=== PATIENT | female | born 1950 | race Caucasian/White ===

== ENCOUNTER → 2019-02-11 09:02 | Outpatient (CLI) | payer MEDICARE, SELFPAY ==
[2019-02-11 10:46] LABS: BUN Creatinine Ratio 18.9 (6-22); Blood Urea Nitrogen 17 mg/dL (7-17); Calcium 9.5 mg/dL (8.4-10.2); Carbon Dioxide 32 mmol/L (22-32); Chloride 99 mmol/L (98-107); Cholesterol 256 mg/dL (140-199); Estimated Glomerular Filt Rate > 60.0 mL/min (>60); Glucose 84 mg/dL (80-110); HDL Cholesterol 52 mg/dL (40-60); HEMOLYSIS < 15 (0-50); LDL Cholesterol Calculated 175 mg/dL (<100); Potassium 3.6 mmol/L (3.4-5.1); Sodium 138 mmol/L (137-145); Triglycerides 145 mg/dL (35-150)
== END ==
PROVIDERS: PCP Family Medicine; Visit Provider Hospitalist
DX: I10 Essential (primary) hypertension (principal)
CPT/HCPCS: 36415; 80048; 80061

== ENCOUNTER → 2019-02-14 10:00 | Outpatient (CLI) | payer MEDICARE, SELFPAY ==
--- NOTE | 2019-02-14 10:02 | DI.RAD.S_ITS ---
PROCEDURE: XR KNEE LT 3V INDICATIONS: Strain of L Knee TECHNIQUE: 3 views of the knee were acquired. COMPARISON: None. FINDINGS: Bones: No fractures or dislocations. No suspicious bony lesions. Mild narrowing of the medial femorotibial joint and tricompartmental periarticular osteophyte formation. Soft tissues: No joint effusion. No suspicious soft tissue calcifications. IMPRESSION: Mild knee joint degeneration, most notably involving the medial femorotibial joint. If pain persist with conservative management, consider advancing imaging such as MRI for further assessment. Dictated by: Doc ELLISON Interpreted: Queta Perera MD on 02/14/2019 at 10:23 Approved by: Queta Perera M.D. on 02/14/2019 at 16:51
== END ==
PROVIDERS: PCP Family Medicine; Visit Provider Family Medicine
DX: S86.912A Strain of unspecified muscle(s) and tendon(s) at lower leg level, left leg, initial encounter (principal); M17.12 Unilateral primary osteoarthritis, left knee; X58.XXXA Exposure to other specified factors, initial encounter
CPT/HCPCS: 73562

== ENCOUNTER 2019-05-28 09:00 | Outpatient (RCR) | payer MEDICARE, SELFPAY ==
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
--- NOTE | 2019-03-28 15:37 | PT-IP ANOTE ---
Pt leaves message for PT this morning and PT returns call approximately [phone]. She reports she was a little off this morning with left sided weakness in leg and wooziness. 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 She verbalizes good fluid intake and that perhaps she has not taken in enough sodium. She is going to try this and will make sure she follows up with her doctor if any other concerns.
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
--- NOTE | 2019-04-17 09:11 | PT.OPPOC ---
Physical, Occupational & Speech Therapy At [facility] Current Diagnoses Strain of unspecified muscle(s) and tendon(s) at lower leg level, left leg, initial encounter (04/17/19) Visit Care Team Role Provider Type Leslee Elizondo DO Attending Provider Physician Primary Care Provider Specialty: [facility] Address: [address] [place] [address], [address], [facility] Email: [email or web address] Plan Of Care PT-OP-T Assessment and Plan Start: 02/26/19 07:32 Freq: Status: Active Protocol: Document 04/17/19 08:14 MB (Rec: 04/17/19 09:09 MB [id number]) Physical Therapy Assessment Rehab Potential Rehabilitation Potential Good Goals 5 Cloth Shader Goal (LTG) Pt will perform B Tandem for at least 30 sec with socks on to improve balance and decrease fall risk by 2019. LTG Duration 8 weeks 4 Half-Way Goal (LTG) Pt will perform HEP with I including pelvic realignment, flexibility, strengthening and balance exercises to increase strength and decrease pain by 06/16/2019. 04/17/2019: Pt is performing progressive HEP LTG Duration 8 weeks 3 Cloth Shader Goal (LTG) Pt will present with improved left knee AROM flexion to at least 125 deg by 04/29/19. 04/17/2019: Goal met with flexion to 126 deg LTG Duration 8 weeks 2 Half-Way Goal (LTG) Pt will present with improved B hip abduction and extension strength to 5/5 by 06/16/2019. 04/17/2019: Right hip flexion and abduction are 5/5 and left hip flexion and abduction are both 4/5 LTG Duration 8 weeks 1 Half-Way Goal (LTG) Pt will present with an improved LE functional index scale score to reflect no more than 20% impairment to allow return to previous active lifestyle by 06/16/2019. 04/17/2019: LEF index score reflects improvement of 28.75% impairment LTG Duration 8 weeks Assessment Summary Assessment Pt has progress towards all PT goals since starting PT. These include decreased pain, strength, performance of HEP and LE functional index score. Pt will benefit from ongoing PT for strengthening, balance and Counterstrain including periosteal fascial treatment to allow pt to return to I active lifestyle. Added balance goal to plan today. Pt to change to Dr. Toledo as PCP 04/25/2019 and requests that PT sends this reassessment to him . Will con't PT 1-2x/wk as pt able to attend treatments d/t copay and needs. Will set plan to 2x/wk currently. Physical Therapy Plan Frequency and Duration Frequency of Treatment 2x/Week Duration of Treatment 8 weeks Plan of Care Start Date 04/17/19 Plan of Care End Date 06/16/19 Therapeutic Interventions Therapeutic Interventions Aquatic Therapy,Balance Training,Home Exercise Program ,Manual Therapy,Neuromuscular Re-education,Patient/Caregiver Education,Self-Care/Home Management,Soft Tissue Mobilization,Taping, Therapeutic Exercises Modalities Cold Pack/Ice Massage,Electric Stimulation,Hot Packs, Ultrasound Next Visit Focus/Plan Next Note Type Treatment Note Next Visit Plan Consider core progression. Progress side step and heel raises with multifidi progression, mini wall squat, Counterstrain as appropriate Plan of Care Dates Plan of Care Start Date 04/17/19 Plan of Care End Date 06/16/19 Electronically Signed by: Erika Wren, PT 04/17/19 0911 Please Sign and Return: I have reviewed this Plan of Care and certify that the skilled therapy services above are required to meet the patient?s needs. Physician Signature Date Printed Name and Credentials Clinical Instructor Signature Printed Name and Credentials
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
== END 2019-05-29 08:04 ==
LOC: PHYS 09:00
PROVIDERS: PCP Family Medicine; Visit Provider Family Medicine
DX: S86.912A Strain of unspecified muscle(s) and tendon(s) at lower leg level, left leg, initial encounter (principal)
CPT/HCPCS: 97110; 97140; 97161

== ENCOUNTER 2019-09-09 08:15 | Outpatient (RCR) | payer MEDICARE, SELFPAY ==
--- NOTE | 2019-06-02 18:12 | PT.OIE ---
Current Diagnoses Strain of muscle(s) and tendon(s) of the rotator cuff of right shoulder, initial encounter (06/02/19) Past Medical History (Last Updated 05/15/19 @ 10:08 by Juan Toledo DO) Allergies (Chronic) Biceps tendinitis of right shoulder (Acute) Cervical somatic dysfunction (Acute) Knee problem (Chronic) Screening for breast cancer (Acute) Stiff neck (Acute) Strain of tendon of right rotator cuff (Acute) Vision disorder (Chronic) Past Surgical History (Last Updated 02/10/19 @ 19:58 by Serenity Marrero) Anesthesia (Resolved) History of appendectomy (Resolved ~1968) History of eye surgery (Resolved ~2011) History of radial keratotomy (Resolved ~1986) History of tubal ligation (Resolved ~1974) Hx of LASIK (Resolved ~1989) Visit Care Team Role Provider Type Juan Toledo DO Attending Provider Physician Primary Care Provider Referring Provider [facility]ty: [facility] Address: [address] [place] [address] Email: Physical Therapy Initial Evaluation PT-OP-A Visit Information Start: 06/02/19 08:18 Freq: Status: Active Protocol: Document 06/02/19 16:02 MB (Rec: 06/02/19 16:50 MB [id number]) Out-Patient Physical Therapy Visit Information Visit Information Visit Type Initial Evaluation Visit Note [employer] Medicare Advantage Visit Start Time 16:02 Visit Stop Time 16:45 Total Visit Minutes 43 Visit Number 1 Evaluation Information Evaluation Date 06/02/19 PT-OP-B Current Condition Start: 06/02/19 08:18 Freq: Status: Active Protocol: Document 06/02/19 16:02 MB (Rec: 06/02/19 16:50 MB [id number]) Current Condition History of Current Condition Onset Date 10 months ago, after moving from [place] History of Current Condition Pt reports 2/10 right shoulder and lateral and posterior elbow that is worse with chopping tasks in the kitchen. She sleeps on her side with her left hand occ neutral and occ flexed. Pt has an old right shoulder injury with lifting heavy axe over right shoulder 5 years ago. She had PT for her shoulder. Prior Treatments and Tests Dry needling right shoulder and elbow Treatment Goals Patient/Caregiver Goals Pt's goal is to be able to cook without pain. PT-OP-C Subjective Start: 06/02/19 08:18 Freq: Status: Active Protocol: Document 06/02/19 16:02 MB (Rec: 06/02/19 16:50 MB [id number]) OP-PT Subjective Patient Comments Patient Comments See above PT-OP-K Range of Motion Start: 06/02/19 08:18 Freq: Status: Active Protocol: Document 06/02/19 16:02 MB (Rec: 06/02/19 18:12 MB [id number]) Cervical Spine Range of Motion Cervical Spine Active Testing Position Standing Flexion 40 Extension 34 Rotation Left 45 Rotation Right 55 Lateral Flexion Left 25 Lateral Flexion Right 16 Shoulder Goniometric Range of Motion Shoulder Left Shoulder ROM WFL Yes Internal Rotation Behind Back (text) Pt is hypermobile Right Shoulder ROM WFL Yes Internal Rotation Behind Back (text) Pt is hypermobile PT-OP-M Strength Start: 06/02/19 08:18 Freq: Status: Active Protocol: Document 06/02/19 16:02 MB (Rec: 06/02/19 18:12 MB [id number]) Shoulder Strength Shoulder Manual Muscle Testing Left Flexion 5 Normal Abduction (C5) 5 Normal External Rotation 5 Normal Internal Rotation 5 Normal Right Flexion 5 Normal Abduction (C5) 3 Fair External Rotation 3+ Fair+ Internal Rotation 4 Good Elbow/Forearm Strength Elbow and Forearm Manual Muscle Testing Left Flexion (C6) 5 Normal Extension (C7) 5 Normal Pronation 3+ Fair+ Supination 3+ Fair+ Right Flexion (C6) 5 Normal Extension (C7) 5 Normal Pronation 5 Normal Supination 5 Normal Wrist Strength Wrist Manual Muscle Testing Left Flexion (C7) 5 Normal Extension (C6) 5 Normal Right Flexion (C7) 5 Normal Extension (C6) 4 Good Hand Truck Rental Service Attendant/Pinch Strength Hand Strength Left Comments 43 lb, 36 lb, 42 lb Right Comments 55 lb, 65 lb, 55 lb PT-OP-Q Treatments Start: 06/02/19 08:18 Freq: Status: Active Protocol: Document 06/02/19 16:02 MB (Rec: 06/02/19 18:12 MB [id number]) Cardio Equipment Recumbent Elliptical (Biodex) Duration (Minutes) 2 Resistance 2 Bicycle (Upright) Duration (Minutes) 2 Resistance 9 Therapeutic Exercises Standing Exercises Racquet ball massage, MWM right infraspinatus Comments Ed pt how to perform this date PT-OP-T Assessment and Plan Start: 06/02/19 08:18 Freq: Status: Active Protocol: Document 06/02/19 16:02 MB (Rec: 06/02/19 18:12 MB [id number]) Physical Therapy Assessment Rehab Potential Rehabilitation Potential Excellent Evaluation Complexity Number of Personal Factors/Comorbidities 0 Number of Body Systems Impaired 1-2 Clinical Presentation at Evaluation Stable Impairments Impairments Pain,Strength Goals 5 Financial Planning Adviser Goal (LTG) Pt will be able to perform chopping in kitchen for 10 minutes with right hand with reports of 90% improvement in pain by 08/04/2019. LTG Duration 8 weeks 4 Impairment QuickDASH score reflects 13.63 % impairment Financial Planning Adviser Goal (LTG) Pt will present with QuickDASH score reflecting no more than 10% impairment to allow return to cooking tasks without pain by 08/04/2019. LTG Duration 8 weeks 3 Financial Planning Adviser Goal (LTG) Pt will present with improved B shoulder abduction, external rotation, internal rotation and wrist pronation and supination strength to 5/5 by 08/04/2019. LTG Duration 8 weeks 2 Assisted Goal (LTG) Pt will perform progressive HEP with I to improve strength by 08/04/2019. LTG Duration 8 weeks Assessment Summary Assessment Pt is a 69 y/o female presenting with reports of right shoulder and elbow pain with chopping in the kitchen. She presents with hypermobility in her joints and decreased shoulder and elbow strength. She presents with fascial changes in her shoulder musculature, triceps and wrist extensors. She will benefit from PT for strengthening, postural exercises and manual work. Physical Therapy Plan Frequency and Duration Frequency of Treatment 2x/Week Duration of Treatment 8 weeks Plan of Care Start Date 06/02/19 Plan of Care End Date 08/04/19 Therapeutic Interventions Therapeutic Interventions Balance Training,Canalithic Repositioning,Home Exercise Program,Joint Mobilizations, Manual Therapy,Neuromuscular Re-education,Patient/Caregiver Education,Self-Care/Home Management,Soft Tissue Mobilization,Taping, Therapeutic Activities, Therapeutic Exercises Modalities Cold Pack/Ice Massage,Electric Stimulation,Hot Packs, Ultrasound Other Therapeutic Interventions LTT Next Visit Focus/Plan Next Note Type Treatment Note Next Visit Plan Con't ther ex
--- NOTE | 2019-06-02 18:12 | PT.OPPOC ---
Physical, Occupational & Speech Therapy At [facility] Current Diagnoses Strain of muscle(s) and tendon(s) of the rotator cuff of right shoulder, initial encounter (06/02/19) Visit Care Team Role Provider Type Juan Toledo DO Attending Provider Physician Primary Care Provider Referring Provider Specialty: [facility] Address: [address] [place] [address], [facility] Email: Plan Of Care PT-OP-T Assessment and Plan Start: 06/02/19 08:18 Freq: Status: Active Protocol: Document 06/02/19 16:02 MB (Rec: 06/02/19 18:12 MB [id number]) Physical Therapy Assessment Rehab Potential Rehabilitation Potential Excellent Evaluation Complexity Number of Personal Factors/Comorbidities 0 Number of Body Systems Impaired 1-2 Clinical Presentation at Evaluation Stable Impairments Impairments Pain,Strength Goals 5 Director Sales Support Goal (LTG) Pt will be able to perform chopping in kitchen for 10 minutes with right hand with reports of 90% improvement in pain by 08/04/2019. LTG Duration 8 weeks 4 Impairment QuickDASH score reflects 13.63 % impairment Nursing Home Goal (LTG) Pt will present with QuickDASH score reflecting no more than 10% impairment to allow return to cooking tasks without pain by 08/04/2019. LTG Duration 8 weeks 3 Nursing Home Goal (LTG) Pt will present with improved B shoulder abduction, external rotation, internal rotation and wrist pronation and supination strength to 5/5 by 08/04/2019. LTG Duration 8 weeks 2 Nursing Home Goal (LTG) Pt will perform progressive HEP with I to improve strength by 08/04/2019. LTG Duration 8 weeks Assessment Summary Assessment Pt is a 69 y/o female presenting with reports of right shoulder and elbow pain with chopping in the kitchen. She presents with hypermobility in her joints and decreased shoulder and elbow strength. She presents with fascial changes in her shoulder musculature, triceps and wrist extensors. She will benefit from PT for strengthening, postural exercises and manual work. Physical Therapy Plan Frequency and Duration Frequency of Treatment 2x/Week Duration of Treatment 8 weeks Plan of Care Start Date 06/02/19 Plan of Care End Date 08/04/19 Therapeutic Interventions Therapeutic Interventions Balance Training,Canalithic Repositioning,Home Exercise Program,Joint Mobilizations, Manual Therapy,Neuromuscular Re-education,Patient/Caregiver Education,Self-Care/Home Management,Soft Tissue Mobilization,Taping, Therapeutic Activities, Therapeutic Exercises Modalities Cold Pack/Ice Massage,Electric Stimulation,Hot Packs, Ultrasound Other Therapeutic Interventions LTT Next Visit Focus/Plan Next Note Type Treatment Note Next Visit Plan Con't ther ex Plan of Care Dates Plan of Care Start Date 06/02/19 Plan of Care End Date 08/04/19 Electronically Signed by: Erika Wren, PT 06/02/19 4400 Please Sign and Return: I have reviewed this Plan of Care and certify that the skilled therapy services above are required to meet the patient?s needs. Physician Signature Date Printed Name and Credentials Clinical Instructor Signature Printed Name and Credentials
--- NOTE | 2019-06-05 16:10 | PT.OTN ---
Current Diagnoses Strain of muscle(s) and tendon(s) of the rotator cuff of right shoulder, initial encounter (06/05/19) Physical Therapy Treatment Note PT-OP-A Visit Information Start: 06/02/19 08:18 Freq: Status: Active Protocol: Document 06/05/19 15:17 MB (Rec: 06/05/19 16:10 MB [id number]) Out-Patient Physical Therapy Visit Information Visit Information Visit Type Treatment Note Visit Note [employer] Medicare Advantage Visit Start Time 15:17 Visit Stop Time 16:00 Total Visit Minutes 43 Visit Number 2 PT-OP-B Current Condition Start: 06/02/19 08:18 Freq: Status: Active Protocol: Document 06/02/19 16:02 MB (Rec: 06/02/19 16:50 MB [id number]) Current Condition History of Current Condition Onset Date 10 months ago, after moving from [place] History of Current Condition Pt reports 2/10 right shoulder and lateral and posterior elbow that is worse with chopping tasks in the kitchen. She sleeps on her side with her left hand occ neutral and occ flexed. Pt has an old right shoulder injury with lifting heavy axe over right shoulder 5 years ago. She had PT for her shoulder. Prior Treatments and Tests Dry needling right shoulder and elbow Treatment Goals Patient/Caregiver Goals Pt's goal is to be able to cook without pain. PT-OP-C Subjective Start: 06/02/19 08:18 Freq: Status: Active Protocol: Document 06/05/19 15:17 MB (Rec: 06/05/19 16:10 MB [id number]) OP-PT Subjective Patient Comments Patient Comments Pt states that her dry needling treatment on her right arm was intense. PT-OP-K Range of Motion Start: 06/02/19 08:18 Freq: Status: Active Protocol: Document 06/02/19 16:02 MB (Rec: 06/02/19 18:12 MB [id number]) Cervical Spine Range of Motion Cervical Spine Active Testing Position Standing Flexion 40 Extension 34 Rotation Left 45 Rotation Right 55 Lateral Flexion Left 25 Lateral Flexion Right 16 Shoulder Goniometric Range of Motion Shoulder Left Shoulder ROM WFL Yes Internal Rotation Behind Back (text) Pt is hypermobile Right Shoulder ROM WFL Yes Internal Rotation Behind Back (text) Pt is hypermobile PT-OP-M Strength Start: 06/02/19 08:18 Freq: Status: Active Protocol: Document 06/02/19 16:02 MB (Rec: 06/02/19 18:12 MB [id number]) Shoulder Strength Shoulder Manual Muscle Testing Left Flexion 5 Normal Abduction (C5) 5 Normal External Rotation 5 Normal Internal Rotation 5 Normal Right Flexion 5 Normal Abduction (C5) 3 Fair External Rotation 3+ Fair+ Internal Rotation 4 Good Elbow/Forearm Strength Elbow and Forearm Manual Muscle Testing Left Flexion (C6) 5 Normal Extension (C7) 5 Normal Pronation 3+ Fair+ Supination 3+ Fair+ Right Flexion (C6) 5 Normal Extension (C7) 5 Normal Pronation 5 Normal Supination 5 Normal Wrist Strength Wrist Manual Muscle Testing Left Flexion (C7) 5 Normal Extension (C6) 5 Normal Right Flexion (C7) 5 Normal Extension (C6) 4 Good Hand Satellite Tv Technician Installer/Pinch Strength Hand Strength Left Comments 43 lb, 36 lb, 42 lb Right Comments 55 lb, 65 lb, 55 lb PT-OP-Q Treatments Start: 06/02/19 08:18 Freq: Status: Active Protocol: Document 06/05/19 15:17 MB (Rec: 06/05/19 16:10 MB [id number]) Therapeutic Exercises Standing Exercises Scapular retraction, triceps work Comments Performed 5 reps slowly, added to HEP Scapular retraction and shoulder extension Comments Performed 5 reps slowly, added to HEP Shoulder ER with level 1 band Comments Performed B, 5 reps with slow form, added to HEP Other Exercises Downward dog Comments Focus on form, feet down, thoracic stretch with scap retraction Manual Therapy Treatment Other Other Manual Treatments Quick ice tissue mobilization right elbow over joint, anconeus, distal triceps and extensor tendons PT-OP-T Assessment and Plan Start: 06/02/19 08:18 Freq: Status: Active Protocol: Document 06/05/19 15:17 MB (Rec: 06/05/19 16:10 MB [id number]) Physical Therapy Assessment Rehab Potential Rehabilitation Potential Excellent Evaluation Complexity Number of Personal Factors/Comorbidities 0 Number of Body Systems Impaired 1-2 Clinical Presentation at Evaluation Stable Impairments Impairments Pain,Strength Goals 5 Seamstress Fitter Goal (LTG) Pt will be able to perform chopping in kitchen for 10 minutes with right hand with reports of 90% improvement in pain by 08/04/2019. LTG Duration 8 weeks 4 Impairment QuickDASH score reflects 13.63 % impairment Senior Care Goal (LTG) Pt will present with QuickDASH score reflecting no more than 10% impairment to allow return to cooking tasks without pain by 08/04/2019. LTG Duration 8 weeks 3 Seamstress Fitter Goal (LTG) Pt will present with improved B shoulder abduction, external rotation, internal rotation and wrist pronation and supination strength to 5/5 by 08/04/2019. LTG Duration 8 weeks 2 Senior Care Goal (LTG) Pt will perform progressive HEP with I to improve strength by 08/04/2019. LTG Duration 8 weeks Assessment Summary Assessment Initiated shoulder strengthening today, quick ice and downward dog focusing on thoracic mobility. Con't PT efforts. Pt to talk with about con't PT over the next two weeks vs holding. She will call in about appointments. She understands risks. Physical Therapy Plan Frequency and Duration Frequency of Treatment 2x/Week Duration of Treatment 8 weeks Plan of Care Start Date 06/02/19 Plan of Care End Date 08/04/19 Therapeutic Interventions Therapeutic Interventions Balance Training,Canalithic Repositioning,Home Exercise Program,Joint Mobilizations, Manual Therapy,Neuromuscular Re-education,Patient/Caregiver Education,Self-Care/Home Management,Soft Tissue Mobilization,Taping, Therapeutic Activities, Therapeutic Exercises Modalities Cold Pack/Ice Massage,Electric Stimulation,Hot Packs, Ultrasound Other Therapeutic Interventions LTT Next Visit Focus/Plan Next Note Type Treatment Note Next Visit Plan Con't ther ex
--- NOTE | 2019-06-28 12:23 | PT-OP ANOTE ---
PT calls pt and she is doing good. She is seeing Dr. Toledo for her shoulder. She will set up appointments in July when she is called by front office.
--- NOTE | 2019-07-12 15:19 | PT-OP ANOTE ---
PT calls pt. Pt states that Dr. Toledo gave her some visualization exercises for her feet and arms. PT communicates that we do not know yet when clinic will reopen, that clinic hours will be limited to begin with, that therapists and patients will wear masks and that the gym situation will allow for 6 feet between patients. PT does communicate that PT has been providing manual care to patient and so pt and PT will be in nearer proximity. Pt communicates that she would like to con't with PT and Counterstrain as we had not yet started to work on her arm, which was her new order prior to the clinic closing. She states that she has con't with Dr. Toledo over the month and feels fine con't with PT.
--- NOTE | 2019-07-31 13:44 | PT.OTN ---
Current Diagnoses Strain of muscle(s) and tendon(s) of the rotator cuff of right shoulder, initial encounter (07/31/19) Physical Therapy Treatment Note PT-OP-A Visit Information Start: 06/02/19 08:18 Freq: Status: Active Protocol: Document 07/31/19 12:59 MB (Rec: 07/31/19 13:42 MB [id number]) Out-Patient Physical Therapy Visit Information Visit Information Visit Type Treatment Note Visit Note [facility] Medicare Advantage Visit Start Time 12:59 Visit Stop Time 13:37 Total Visit Minutes 38 Visit Number 3 PT-OP-B Current Condition Start: 06/02/19 08:18 Freq: Status: Active Protocol: Document 06/02/19 16:02 MB (Rec: 06/02/19 16:50 MB [id number]) Current Condition History of Current Condition Onset Date 10 months ago, after moving from [place] History of Current Condition Pt reports 2/10 right shoulder and lateral and posterior elbow that is worse with chopping tasks in the kitchen. She sleeps on her side with her left hand occ neutral and occ flexed. Pt has an old right shoulder injury with lifting heavy axe over right shoulder 5 years ago. She had PT for her shoulder. Prior Treatments and Tests Dry needling right shoulder and elbow Treatment Goals Patient/Caregiver Goals Pt's goal is to be able to cook without pain. 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 She wonders about wearing aura wraps. She feels she is still challenging herself with those exercises. Update on right arm: pt got a pool noodle. Pt con't with ongoing right anterior shoulder pain near biceps tendon. She also points to lateral proximal arm around elbow. Chopping, house work and brushing teeth can bother her. Pain gets up to 6/10 at times. She is doing band exercises. Dr. Toledo told her to stop doing infraspinatus STM with racquet ball. It was too much. PT-OP-K Range of Motion Start: 06/02/19 08:18 Freq: Status: Active Protocol: Document 06/02/19 16:02 MB (Rec: 06/02/19 18:12 MB [id number]) Cervical Spine Range of Motion Cervical Spine Active Testing Position Standing Flexion 40 Extension 34 Rotation Left 45 Rotation Right 55 Lateral Flexion Left 25 Lateral Flexion Right 16 Shoulder Goniometric Range of Motion Shoulder Left Shoulder ROM WFL Yes Internal Rotation Behind Back (text) Pt is hypermobile Right Shoulder ROM WFL Yes Internal Rotation Behind Back (text) Pt is hypermobile PT-OP-M Strength Start: 06/02/19 08:18 Freq: Status: Active Protocol: Document 06/02/19 16:02 MB (Rec: 06/02/19 18:12 MB [id number]) Shoulder Strength Shoulder Manual Muscle Testing Left Flexion 5 Normal Abduction (C5) 5 Normal External Rotation 5 Normal Internal Rotation 5 Normal Right Flexion 5 Normal Abduction (C5) 3 Fair External Rotation 3+ Fair+ Internal Rotation 4 Good Elbow/Forearm Strength Elbow and Forearm Manual Muscle Testing Left Flexion (C6) 5 Normal Extension (C7) 5 Normal Pronation 3+ Fair+ Supination 3+ Fair+ Right Flexion (C6) 5 Normal Extension (C7) 5 Normal Pronation 5 Normal Supination 5 Normal Wrist Strength Wrist Manual Muscle Testing Left Flexion (C7) 5 Normal Extension (C6) 5 Normal Right Flexion (C7) 5 Normal Extension (C6) 4 Good Hand Asic Verification Engineer/Pinch Strength Hand Strength Left Comments 43 lb, 36 lb, 42 lb Right Comments 55 lb, 65 lb, 55 lb PT-OP-Q Treatments Start: 06/02/19 08:18 Freq: Status: Active Protocol: Document 07/31/19 12:59 MB (Rec: 07/31/19 13:42 MB [id number]) Therapeutic Exercises Standing Exercises Scapular retraction, triceps work Comments Performed 5 reps slowly level 2 band Scapular retraction and shoulder extension Comments Performed 5 reps slowly, level 2 band Shoulder ER with level 1 band Comments Performed B, 5 reps with slow form, level 2 band Other Exercises Pt has no HEP questions, reviewed as needed verbally Comments This performed today, reviewed core exercises, postural exercises, STM PT-OP-T Assessment and Plan Start: 06/02/19 08:18 Freq: Status: Active Protocol: Document 07/31/19 12:59 MB (Rec: 07/31/19 13:42 MB [id number]) Physical Therapy Assessment Rehab Potential Rehabilitation Potential Excellent Evaluation Complexity Number of Personal Factors/Comorbidities 0 Number of Body Systems Impaired 1-2 Clinical Presentation at Evaluation Stable Impairments Impairments Pain,Strength Goals 5 Correction Goal (LTG) Pt will be able to perform chopping in kitchen for 10 minutes with right hand with reports of 90% improvement in pain by 09/30/2019. 07/31/2019: Arm pain in kitchen is similar. LTG Duration 8 weeks 4 Impairment QuickDASH score reflects 13.63 % impairment Inside Sales Account Representative Goal (LTG) Pt will present with QuickDASH score reflecting no more than 10% impairment to allow return to cooking tasks without pain by 09/30/2019. 07/31/2019: QuickDASH score reflects 61.36% impairment. LTG Duration 8 weeks 3 Inside Sales Account Representative Goal (LTG) Pt will present with improved B shoulder abduction, external rotation, internal rotation and wrist pronation and supination strength to 5/5 by 09/30/2019. 07/31/2019: MMT today: shoulder abduction right 4/5 and pain 5/10, left 5/5; ER right 3+/5 and pain 2/10, left 4/5; B IR 5/5; B elbow flexion and extension, wrist extension, flexion, pronation and supination 5/5. LTG Duration 8 weeks 2 Correction Goal (LTG) Pt will perform progressive HEP with I to improve strength by 09/30/2019. 07/31/2019: Pt is performing progressive HEP. Reviewed all exercises today. LTG Duration 8 weeks Assessment Summary Assessment Progress note after COVID closure. Pt would like to con' t PT and understands risks. She con't with right shoulder pain. Her wrist strength and shoulder IR strength has improved. She is performing initial exercises and cannot yet do downward dog. She will benefit from ongoing PT for strengthening, thoracic mobility, manual PT. Physical Therapy Plan Frequency and Duration Frequency of Treatment 2x/Week Duration of Treatment 8 weeks Plan of Care Start Date 07/31/19 Plan of Care End Date 09/30/19 Therapeutic Interventions Therapeutic Interventions Balance Training,Canalithic Repositioning,Home Exercise Program,Joint Mobilizations, Manual Therapy,Neuromuscular Re-education,Patient/Caregiver Education,Self-Care/Home Management,Soft Tissue Mobilization,Taping, Therapeutic Activities, Therapeutic Exercises Modalities Cold Pack/Ice Massage,Electric Stimulation,Hot Packs, Ultrasound Other Therapeutic Interventions LTT Next Visit Focus/Plan Next Note Type Treatment Note Next Visit Plan Con't ther ex, assess first rib, initiate Counterstrain, thoracic mobility, pool noodle exercises.
--- NOTE | 2019-07-31 13:45 | PT.OPPOC ---
Physical, Occupational & Speech Therapy At [facility] Current Diagnoses Strain of muscle(s) and tendon(s) of the rotator cuff of right shoulder, initial encounter (07/31/19) Visit Care Team Role Provider Type Juan Toledo DO Attending Provider Physician Primary Care Provider Referring Provider Specialty: [facility] Address: [address] [place] [address], [facility] Email: Plan Of Care PT-OP-T Assessment and Plan Start: 06/02/19 08:18 Freq: Status: Active Protocol: Document 07/31/19 12:59 MB (Rec: 07/31/19 13:42 MB [id number]) Physical Therapy Assessment Rehab Potential Rehabilitation Potential Excellent Evaluation Complexity Number of Personal Factors/Comorbidities 0 Number of Body Systems Impaired 1-2 Clinical Presentation at Evaluation Stable Impairments Impairments Pain,Strength Goals 5 Fci Goal (LTG) Pt will be able to perform chopping in kitchen for 10 minutes with right hand with reports of 90% improvement in pain by 09/30/2019. 07/31/2019: Arm pain in kitchen is similar. LTG Duration 8 weeks 4 Impairment QuickDASH score reflects 13.63 % impairment Hub Cutter Apprentice Goal (LTG) Pt will present with QuickDASH score reflecting no more than 10% impairment to allow return to cooking tasks without pain by 09/30/2019. 07/31/2019: QuickDASH score reflects 61.36% impairment. LTG Duration 8 weeks 3 [facility]ci Goal (LTG) Pt will present with improved B shoulder abduction, external rotation, internal rotation and wrist pronation and supination strength to 5/5 by 09/30/2019. 07/31/2019: MMT today: shoulder abduction right 4/5 and pain 5/10, left 5/5; ER right 3+/5 and pain 2/10, left 4/5; B IR 5/5; B elbow flexion and extension, wrist extension, flexion, pronation and supination 5/5. LTG Duration 8 weeks 2 [facility]ci Goal (LTG) Pt will perform progressive HEP with I to improve strength by 09/30/2019. 07/31/2019: Pt is performing progressive HEP. Reviewed all exercises today. LTG Duration 8 weeks Assessment Summary Assessment Progress note after COVID closure. Pt would like to con' t PT and understands risks. She con't with right shoulder pain. Her wrist strength and shoulder IR strength has improved. She is performing initial exercises and cannot yet do downward dog. She will benefit from ongoing PT for strengthening, thoracic mobility, manual PT. Physical Therapy Plan Frequency and Duration Frequency of Treatment 2x/Week Duration of Treatment 8 weeks Plan of Care Start Date 07/31/19 Plan of Care End Date 09/30/19 Therapeutic Interventions Therapeutic Interventions Balance Training,Canalithic Repositioning,Home Exercise Program,Joint Mobilizations, Manual Therapy,Neuromuscular Re-education,Patient/Caregiver Education,Self-Care/Home Management,Soft Tissue Mobilization,Taping, Therapeutic Activities, Therapeutic Exercises Modalities Cold Pack/Ice Massage,Electric Stimulation,Hot Packs, Ultrasound Other Therapeutic Interventions LTT Next Visit Focus/Plan Next Note Type Treatment Note Next Visit Plan Con't ther ex, assess first rib, initiate Counterstrain, thoracic mobility, pool noodle exercises. Plan of Care Dates Plan of Care Start Date 07/31/19 Plan of Care End Date 09/30/19 Electronically Signed by: Erika Wren, PT 07/31/19 [id number] Please Sign and Return: I have reviewed this Plan of Care and certify that the skilled therapy services above are required to meet the patient?s needs. Physician Signature Date Printed Name and Credentials Clinical Instructor Signature Printed Name and Credentials
--- NOTE | 2019-07-31 17:54 | PT.OPPN ---
Current Diagnoses Strain of muscle(s) and tendon(s) of the rotator cuff of right shoulder, initial encounter (07/31/19) Physical Therapy Progress Note PT-OP-A Visit Information Start: 06/02/19 08:18 Freq: Status: Active Protocol: Document 07/31/19 12:59 MB (Rec: 07/31/19 13:42 MB [id number]) Out-Patient Physical Therapy Visit Information Visit Information Visit Type Treatment Note [facility] Start Time 12:59 Visit Stop Time 13:37 Total Visit Minutes 38 Visit Number 3 PT-OP-B Current Condition Start: 06/02/19 08:18 Freq: Status: Active Protocol: Document 06/02/19 16:02 MB (Rec: 06/02/19 16:50 MB [id number]) Current Condition History of Current Condition Onset Date 10 months ago, after moving from [place] History of Current Condition Pt reports 2/10 right shoulder and lateral and posterior elbow that is worse with chopping tasks in the kitchen. She sleeps on her side with her left hand occ neutral and occ flexed. Pt has an old right shoulder injury with lifting heavy axe over right shoulder 5 years ago. She had PT for her shoulder. Prior Treatments and Tests Dry needling right shoulder and elbow Treatment Goals Patient/Caregiver Goals Pt's goal is to be able to cook without pain. PT-OP-C Subjective Start: 06/02/19 08:18 Freq: Status: Active Protocol: Document 07/31/19 12:59 MB (Rec: 07/31/19 13:42 MB [id number]) OP-PT Subjective Patient Comments Patient Comments Pt states that she has some arthritic pain in her knees, greater on the right. She wonders about wearing aura wraps. She feels she is still challenging herself with those exercises. Update on right arm: pt got a pool noodle. Pt con't with ongoing right anterior shoulder pain near biceps tendon. She also points to lateral proximal arm around elbow. Chopping, house work and brushing teeth can bother her. Pain gets up to 6/10 at times. She is doing band exercises. Dr. Toledo told her to stop doing infraspinatus STM with racquet ball. It was too much. PT-OP-K Range of Motion Start: 06/02/19 08:18 Freq: Status: Active Protocol: Document 06/02/19 16:02 MB (Rec: 06/02/19 18:12 MB [id number]) Cervical Spine Range of Motion Cervical Spine Active Testing Position Standing Flexion 40 Extension 34 Rotation Left 45 Rotation Right 55 Lateral Flexion Left 25 Lateral Flexion Right 16 Shoulder Goniometric Range of Motion Shoulder Measured in Degrees Left Shoulder ROM WFL Yes Internal Rotation Behind Back (text) Pt is hypermobile Right Shoulder ROM WFL Yes Internal Rotation Behind Back (text) Pt is hypermobile PT-OP-M Strength Start: 06/02/19 08:18 Freq: Status: Active Protocol: Document 06/02/19 16:02 MB (Rec: 06/02/19 18:12 MB [id number]) Shoulder Strength Shoulder Manual Muscle Testing Left Flexion 5 Normal Abduction (C5) 5 Normal External Rotation 5 Normal Internal Rotation 5 Normal Right Flexion 5 Normal Abduction (C5) 3 Fair External Rotation 3+ Fair+ Internal Rotation 4 Good Elbow/Forearm Strength Elbow and Forearm Manual Muscle Testing Left Flexion (C6) 5 Normal Extension (C7) 5 Normal Pronation 3+ Fair+ Supination 3+ Fair+ Right Flexion (C6) 5 Normal Extension (C7) 5 Normal Pronation 5 Normal Supination 5 Normal Wrist Strength Wrist Manual Muscle Testing Left Flexion (C7) 5 Normal Extension (C6) 5 Normal Right Flexion (C7) 5 Normal Extension (C6) 4 Good Hand Astrochemist/Pinch Strength Hand Strength Left Comments 43 lb, 36 lb, 42 lb Right Comments 55 lb, 65 lb, 55 lb PT-OP-T Assessment and Plan Start: 06/02/19 08:18 Freq: Status: Active Protocol: Document 07/31/19 12:59 MB (Rec: 07/31/19 13:42 MB [id number]) Physical Therapy Assessment Rehab Potential Rehabilitation Potential Excellent Evaluation Complexity Number of Personal Factors/Comorbidities 0 Number of Body Systems Impaired 1-2 Clinical Presentation at Evaluation Stable Impairments Impairments Pain,Strength Goals 5 Bench Shear Operator Goal (LTG) Pt will be able to perform chopping in kitchen for 10 minutes with right hand with reports of 90% improvement in pain by 09/30/2019. 07/31/2019: Arm pain in kitchen is similar. LTG Duration 8 weeks 4 Impairment QuickDASH score reflects 13.63 % impairment Bench Shear Operator Goal (LTG) Pt will present with QuickDASH score reflecting no more than 10% impairment to allow return to cooking tasks without pain by 09/30/2019. 07/31/2019: QuickDASH score reflects 61.36% impairment. LTG Duration 8 weeks 3 Bench Shear Operator Goal (LTG) Pt will present with improved B shoulder abduction, external rotation, internal rotation and wrist pronation and supination strength to 5/5 by 09/30/2019. 07/31/2019: MMT today: shoulder abduction right 4/5 and pain 5/10, left 5/5; ER right 3+/5 and pain 2/10, left 4/5; B IR 5/5; B elbow flexion and extension, wrist extension, flexion, pronation and supination 5/5. LTG Duration 8 weeks 2 Bench Shear Operator Goal (LTG) Pt will perform progressive HEP with I to improve strength by 09/30/2019. 07/31/2019: Pt is performing progressive HEP. Reviewed all exercises today. LTG Duration 8 weeks Assessment Summary Assessment Progress note after COVID closure. Pt would like to con' t PT and understands risks. She con't with right shoulder pain. Her wrist strength and shoulder IR strength has improved. She is performing initial exercises and cannot yet do downward dog. She will benefit from ongoing PT for strengthening, thoracic mobility, manual PT. Physical Therapy Plan Frequency and Duration Frequency of Treatment 2x/Week Duration of Treatment 8 weeks Plan of Care Start Date 07/31/19 Plan of Care End Date 09/30/19 Therapeutic Interventions Therapeutic Interventions Balance Training,Canalithic Repositioning,Home Exercise Program,Joint Mobilizations, Manual Therapy,Neuromuscular Re-education,Patient/Caregiver Education,Self-Care/Home Management,Soft Tissue Mobilization,Taping, Therapeutic Activities, Therapeutic Exercises Modalities Cold Pack/Ice Massage,Electric Stimulation,Hot Packs, Ultrasound Other Therapeutic Interventions LTT Next Visit Focus/Plan Next Note Type Treatment Note Next Visit Plan Con't ther ex, assess first rib, initiate Counterstrain, thoracic mobility, pool noodle exercises.
--- NOTE | 2019-08-05 08:16 | PT.OTN ---
Current Diagnoses Strain of muscle(s) and tendon(s) of the rotator cuff of right shoulder, initial encounter (08/05/19) Physical Therapy Treatment Note PT-OP-A Visit Information Start: 06/02/19 08:18 Freq: Status: Active Protocol: Document 08/05/19 07:34 MB (Rec: 08/05/19 08:15 MB [id number]) Out-Patient Physical Therapy Visit Information Visit Information Visit Type Treatment Note [facility] Start Time 07:34 Visit Stop Time 08:15 Total Visit Minutes 41 Visit Number 2 PT-OP-B Current Condition Start: 06/02/19 08:18 Freq: Status: Active Protocol: Document 06/02/19 16:02 MB (Rec: 06/02/19 16:50 MB [id number]) Current Condition History of Current Condition Onset Date 10 months ago, after moving from [place] History of Current Condition Pt reports 2/10 right shoulder and lateral and posterior elbow that is worse with chopping tasks in the kitchen. She sleeps on her side with her left hand occ neutral and occ flexed. Pt has an old right shoulder injury with lifting heavy axe over right shoulder 5 years ago. She had PT for her shoulder. Prior Treatments and Tests Dry needling right shoulder and elbow Treatment Goals Patient/Caregiver Goals Pt's goal is to be able to cook without pain. PT-OP-C Subjective Start: 06/02/19 08:18 Freq: Status: Active Protocol: Document 08/05/19 07:34 MB (Rec: 08/05/19 08:15 MB [id number]) OP-PT Subjective Patient Comments Patient Comments Pt states that she had a good day yesterday driving to [place] and walking to [place] . PT-OP-K Range of Motion Start: 06/02/19 08:18 Freq: Status: Active Protocol: Document 06/02/19 16:02 MB (Rec: 06/02/19 18:12 MB [id number]) Cervical Spine Range of Motion Cervical Spine Active Testing Position Standing Flexion 40 Extension 34 Rotation Left 45 Rotation Right 55 Lateral Flexion Left 25 Lateral Flexion Right 16 Shoulder Goniometric Range of Motion Shoulder Left Shoulder ROM WFL Yes Internal Rotation Behind Back (text) Pt is hypermobile Right Shoulder ROM WFL Yes Internal Rotation Behind Back (text) Pt is hypermobile PT-OP-M Strength Start: 06/02/19 08:18 Freq: Status: Active Protocol: Document 06/02/19 16:02 MB (Rec: 06/02/19 18:12 MB [id number]) Shoulder Strength Shoulder Manual Muscle Testing Left Flexion 5 Normal Abduction (C5) 5 Normal External Rotation 5 Normal Internal Rotation 5 Normal Right Flexion 5 Normal Abduction (C5) 3 Fair External Rotation 3+ Fair+ Internal Rotation 4 Good Elbow/Forearm Strength Elbow and Forearm Manual Muscle Testing Left Flexion (C6) 5 Normal Extension (C7) 5 Normal Pronation 3+ Fair+ Supination 3+ Fair+ Right Flexion (C6) 5 Normal Extension (C7) 5 Normal Pronation 5 Normal Supination 5 Normal Wrist Strength Wrist Manual Muscle Testing Left Flexion (C7) 5 Normal Extension (C6) 5 Normal Right Flexion (C7) 5 Normal Extension (C6) 4 Good Hand Inventory Control Coordinator/Pinch Strength Hand Strength Left Comments 43 lb, 36 lb, 42 lb Right Comments 55 lb, 65 lb, 55 lb PT-OP-Q Treatments Start: 06/02/19 08:18 Freq: Status: Active Protocol: Document 08/05/19 07:34 MB (Rec: 08/05/19 08:15 MB [id number]) Manual Therapy Treatment Other Other Manual Treatments Counterstrain to improve fascial mobility. Pt agrees to treatment. PT assesses and treats: B ALL, standard lymphatic row B thoracic, periosteal ribs PT-OP-T Assessment and Plan Start: 06/02/19 08:18 Freq: Status: Active Protocol: Document 08/05/19 07:34 MB (Rec: 08/05/19 08:15 MB [id number]) Physical Therapy Assessment Rehab Potential Rehabilitation Potential Excellent Evaluation Complexity Number of Personal Factors/Comorbidities 0 Number of Body Systems Impaired 1-2 Clinical Presentation at Evaluation Stable Impairments Impairments Pain,Strength Goals 5 Embroiderer Hand Goal (LTG) Pt will be able to perform chopping in kitchen for 10 minutes with right hand with reports of 90% improvement in pain by 09/30/2019. 07/31/2019: Arm pain in kitchen is similar. LTG Duration 8 weeks 4 Impairment QuickDASH score reflects 13.63 % impairment Senior Care Goal (LTG) Pt will present with QuickDASH score reflecting no more than 10% impairment to allow return to cooking tasks without pain by 09/30/2019. 07/31/2019: QuickDASH score reflects 61.36% impairment. LTG Duration 8 weeks 3 Embroiderer Hand Goal (LTG) Pt will present with improved B shoulder abduction, external rotation, internal rotation and wrist pronation and supination strength to 5/5 by 09/30/2019. 07/31/2019: MMT today: shoulder abduction right 4/5 and pain 5/10, left 5/5; ER right 3+/5 and pain 2/10, left 4/5; B IR 5/5; B elbow flexion and extension, wrist extension, flexion, pronation and supination 5/5. LTG Duration 8 weeks 2 Senior Care Goal (LTG) Pt will perform progressive HEP with I to improve strength by 09/30/2019. 07/31/2019: Pt is performing progressive HEP. Reviewed all exercises today. LTG Duration 8 weeks Assessment Summary Assessment Initiated Counterstrain this date. She presents with increased tension in her thoracic spine and ribs and this likely contributes to elbow symptoms. She will benefit from ongoing PT for strengthening, thoracic mobility, manual PT. Physical Therapy Plan Frequency and Duration Frequency of Treatment 2x/Week Duration of Treatment 8 weeks Plan of Care Start Date 07/31/19 Plan of Care End Date 09/30/19 Therapeutic Interventions Therapeutic Interventions Balance Training,Canalithic Repositioning,Home Exercise Program,Joint Mobilizations, Manual Therapy,Neuromuscular Re-education,Patient/Caregiver Education,Self-Care/Home Management,Soft Tissue Mobilization,Taping, Therapeutic Activities, Therapeutic Exercises Modalities Cold Pack/Ice Massage,Electric Stimulation,Hot Packs, Ultrasound Other Therapeutic Interventions LTT Next Visit Focus/Plan Next Note Type Treatment Note Next Visit Plan Con't ther ex, assess first rib, initiate Counterstrain, thoracic mobility, pool noodle exercises.
--- NOTE | 2019-08-07 13:46 | PT.OTN ---
Current Diagnoses Strain of muscle(s) and tendon(s) of the rotator cuff of right shoulder, initial encounter (08/07/19) Physical Therapy Treatment Note PT-OP-A Visit Information Start: 06/02/19 08:18 Freq: Status: Active Protocol: Document 08/07/19 12:59 MB (Rec: 08/07/19 13:46 MB [id number]) Out-Patient Physical Therapy Visit Information Visit Information Visit Type Treatment Note [facility] Start Time 12:59 Visit Stop Time 13:44 Total Visit Minutes 45 Visit Number 3 PT-OP-B Current Condition Start: 06/02/19 08:18 Freq: Status: Active Protocol: Document 06/02/19 16:02 MB (Rec: 06/02/19 16:50 MB [id number]) Current Condition History of Current Condition Onset Date 10 months ago, after moving from [place] History of Current Condition Pt reports 2/10 right shoulder and lateral and posterior elbow that is worse with chopping tasks in the kitchen. She sleeps on her side with her left hand occ neutral and occ flexed. Pt has an old right shoulder injury with lifting heavy axe over right shoulder 5 years ago. She had PT for her shoulder. Prior Treatments and Tests Dry needling right shoulder and elbow Treatment Goals Patient/Caregiver Goals Pt's goal is to be able to cook without pain. PT-OP-C Subjective Start: 06/02/19 08:18 Freq: Status: Active Protocol: Document 08/07/19 12:59 MB (Rec: 08/07/19 13:46 MB [id number]) OP-PT Subjective Patient Comments Patient Comments Pt states that she needs more manual work. It took her body two days to assimilate. She is doing balance exercises and pelvic and back pain stretches . PT-OP-K Range of Motion Start: 06/02/19 08:18 Freq: Status: Active Protocol: Document 06/02/19 16:02 MB (Rec: 06/02/19 18:12 MB [id number]) Cervical Spine Range of Motion Cervical Spine Active Testing Position Standing Flexion 40 Extension 34 Rotation Left 45 Rotation Right 55 Lateral Flexion Left 25 Lateral Flexion Right 16 Shoulder Goniometric Range of Motion Shoulder Left Shoulder ROM WFL Yes Internal Rotation Behind Back (text) Pt is hypermobile Right Shoulder ROM WFL Yes Internal Rotation Behind Back (text) Pt is hypermobile PT-OP-M Strength Start: 06/02/19 08:18 Freq: Status: Active Protocol: Document 06/02/19 16:02 MB (Rec: 06/02/19 18:12 MB [id number]) Shoulder Strength Shoulder Manual Muscle Testing Left Flexion 5 Normal Abduction (C5) 5 Normal External Rotation 5 Normal Internal Rotation 5 Normal Right Flexion 5 Normal Abduction (C5) 3 Fair External Rotation 3+ Fair+ Internal Rotation 4 Good Elbow/Forearm Strength Elbow and Forearm Manual Muscle Testing Left Flexion (C6) 5 Normal Extension (C7) 5 Normal Pronation 3+ Fair+ Supination 3+ Fair+ Right Flexion (C6) 5 Normal Extension (C7) 5 Normal Pronation 5 Normal Supination 5 Normal Wrist Strength Wrist Manual Muscle Testing Left Flexion (C7) 5 Normal Extension (C6) 5 Normal Right Flexion (C7) 5 Normal Extension (C6) 4 Good Hand Purification Operator Helper/Pinch Strength Hand Strength Left Comments 43 lb, 36 lb, 42 lb Right Comments 55 lb, 65 lb, 55 lb PT-OP-Q Treatments Start: 06/02/19 08:18 Freq: Status: Active Protocol: Document 08/07/19 12:59 MB (Rec: 08/07/19 13:46 MB [id number]) Manual Therapy Treatment Other Other Manual Treatments Counterstrain to improve fascial mobility. Pt agrees to treatment. PT assesses and treats: B trigeminal nerve fascia, cervical sinu- vertebral nerves, left CDT, standard lymphatic row, iliac veins, left standard lymphatic row scapulohumeral PT-OP-T Assessment and Plan Start: 06/02/19 08:18 Freq: Status: Active Protocol: Document 08/07/19 12:59 MB (Rec: 08/07/19 13:46 MB [id number]) Physical Therapy Assessment Rehab Potential Rehabilitation Potential Excellent Evaluation Complexity Number of Personal Factors/Comorbidities 0 Number of Body Systems Impaired 1-2 Clinical Presentation at Evaluation Stable Impairments Impairments Pain,Strength Goals 5 Fdc Goal (LTG) Pt will be able to perform chopping in kitchen for 10 minutes with right hand with reports of 90% improvement in pain by 09/30/2019. 07/31/2019: Arm pain in kitchen is similar. LTG Duration 8 weeks 4 Impairment QuickDASH score reflects 13.63 % impairment Bumboater Goal (LTG) Pt will present with QuickDASH score reflecting no more than 10% impairment to allow return to cooking tasks without pain by 09/30/2019. 07/31/2019: QuickDASH score reflects 61.36% impairment. LTG Duration 8 weeks 3 Fdc Goal (LTG) Pt will present with improved B shoulder abduction, external rotation, internal rotation and wrist pronation and supination strength to 5/5 by 09/30/2019. 07/31/2019: MMT today: shoulder abduction right 4/5 and pain 5/10, left 5/5; ER right 3+/5 and pain 2/10, left 4/5; B IR 5/5; B elbow flexion and extension, wrist extension, flexion, pronation and supination 5/5. LTG Duration 8 weeks 2 [place] Goal (LTG) Pt will perform progressive HEP with I to improve strength by 09/30/2019. 07/31/2019: Pt is performing progressive HEP. Reviewed all exercises today. LTG Duration 8 weeks Assessment Summary Assessment Pt presents with increased fascial tension neural fascial system today. Con't to address. Initiate thoracic mobility and functional strengthening with PNF and/or body blade in future treatments. Physical Therapy Plan Frequency and Duration Frequency of Treatment 2x/Week Duration of Treatment 8 weeks Plan of Care Start Date 07/31/19 Plan of Care End Date 09/30/19 Therapeutic Interventions Therapeutic Interventions Balance Training,Canalithic Repositioning,Home Exercise Program,Joint Mobilizations, Manual Therapy,Neuromuscular Re-education,Patient/Caregiver Education,Self-Care/Home Management,Soft Tissue Mobilization,Taping, Therapeutic Activities, Therapeutic Exercises Modalities Cold Pack/Ice Massage,Electric Stimulation,Hot Packs, Ultrasound Other Therapeutic Interventions LTT Next Visit Focus/Plan Next Note Type Treatment Note Next Visit Plan Con't ther ex, assess first rib, initiate Counterstrain, thoracic mobility, pool noodle exercises.
--- NOTE | 2019-08-12 11:17 | PT.OTN ---
Current Diagnoses Strain of muscle(s) and tendon(s) of the rotator cuff of right shoulder, initial encounter (08/12/19) Physical Therapy Treatment Note PT-OP-A Visit Information Start: 06/02/19 08:18 Freq: Status: Active Protocol: Document 08/12/19 10:30 MB (Rec: 08/12/19 11:16 MB [id number]) Out-Patient Physical Therapy Visit Information Visit Information Visit Type Treatment Note Visit Note [employer] Medicare Advantage Visit Start Time 10:30 Visit Stop Time 11:15 Total Visit Minutes 45 Visit Number 4 PT-OP-B Current Condition Start: 06/02/19 08:18 Freq: Status: Active Protocol: Document 06/02/19 16:02 MB (Rec: 06/02/19 16:50 MB [id number]) Current Condition History of Current Condition Onset Date 10 months ago, after moving from [place] History of Current Condition Pt reports 2/10 right shoulder and lateral and posterior elbow that is worse with chopping tasks in the kitchen. She sleeps on her side with her left hand occ neutral and occ flexed. Pt has an old right shoulder injury with lifting heavy axe over right shoulder 5 years ago. She had PT for her shoulder. Prior Treatments and Tests Dry needling right shoulder and elbow Treatment Goals Patient/Caregiver Goals Pt's goal is to be able to cook without pain. PT-OP-C Subjective Start: 06/02/19 08:18 Freq: Status: Active Protocol: Document 08/12/19 10:30 MB (Rec: 08/12/19 11:16 MB [id number]) OP-PT Subjective Patient Comments Patient Comments Pt states that she had a bit of a breakthrough with her knees. She got copper knee sleeves and they are warm. Pt states that her right elbow and right upper arm doesn't want to do much. PT-OP-K Range of Motion Start: 06/02/19 08:18 Freq: Status: Active Protocol: Document 06/02/19 16:02 MB (Rec: 06/02/19 18:12 MB [id number]) Cervical Spine Range of Motion Cervical Spine Active Testing Position Standing Flexion 40 Extension 34 Rotation Left 45 Rotation Right 55 Lateral Flexion Left 25 Lateral Flexion Right 16 Shoulder Goniometric Range of Motion Shoulder Left Shoulder ROM WFL Yes Internal Rotation Behind Back (text) Pt is hypermobile Right Shoulder ROM WFL Yes Internal Rotation Behind Back (text) Pt is hypermobile PT-OP-M Strength Start: 06/02/19 08:18 Freq: Status: Active Protocol: Document 06/02/19 16:02 MB (Rec: 06/02/19 18:12 MB [id number]) Shoulder Strength Shoulder Manual Muscle Testing Left Flexion 5 Normal Abduction (C5) 5 Normal External Rotation 5 Normal Internal Rotation 5 Normal Right Flexion 5 Normal Abduction (C5) 3 Fair External Rotation 3+ Fair+ Internal Rotation 4 Good Elbow/Forearm Strength Elbow and Forearm Manual Muscle Testing Left Flexion (C6) 5 Normal Extension (C7) 5 Normal Pronation 3+ Fair+ Supination 3+ Fair+ Right Flexion (C6) 5 Normal Extension (C7) 5 Normal Pronation 5 Normal Supination 5 Normal Wrist Strength Wrist Manual Muscle Testing Left Flexion (C7) 5 Normal Extension (C6) 5 Normal Right Flexion (C7) 5 Normal Extension (C6) 4 Good Hand Systems Architecture Analyst/Pinch Strength Hand Strength Left Comments 43 lb, 36 lb, 42 lb Right Comments 55 lb, 65 lb, 55 lb PT-OP-Q Treatments Start: 06/02/19 08:18 Freq: Status: Active Protocol: Document 08/12/19 10:30 MB (Rec: 08/12/19 11:16 MB [id number]) Manual Therapy Treatment Other Other Manual Treatments Counterstrain to improve fascial mobility. Pt agrees to treatment. PT assesses and treats: cervical and thoracic periosteal, UEs PT-OP-T Assessment and Plan Start: 06/02/19 08:18 Freq: Status: Active Protocol: Document 08/12/19 10:30 MB (Rec: 08/12/19 11:16 MB [id number]) Physical Therapy Assessment Rehab Potential Rehabilitation Potential Excellent Evaluation Complexity Number of Personal Factors/Comorbidities 0 Number of Body Systems Impaired 1-2 Clinical Presentation at Evaluation Stable Impairments Impairments Pain,Strength Goals 5 Engine Mechanic Goal (LTG) Pt will be able to perform chopping in kitchen for 10 minutes with right hand with reports of 90% improvement in pain by 09/30/2019. 07/31/2019: Arm pain in kitchen is similar. LTG Duration 8 weeks 4 Impairment QuickDASH score reflects 13.63 % impairment Halfway Goal (LTG) Pt will present with QuickDASH score reflecting no more than 10% impairment to allow return to cooking tasks without pain by 09/30/2019. 07/31/2019: QuickDASH score reflects 61.36% impairment. LTG Duration 8 weeks 3 Halfway Goal (LTG) Pt will present with improved B shoulder abduction, external rotation, internal rotation and wrist pronation and supination strength to 5/5 by 09/30/2019. 07/31/2019: MMT today: shoulder abduction right 4/5 and pain 5/10, left 5/5; ER right 3+/5 and pain 2/10, left 4/5; B IR 5/5; B elbow flexion and extension, wrist extension, flexion, pronation and supination 5/5. LTG Duration 8 weeks 2 Halfway Goal (LTG) Pt will perform progressive HEP with I to improve strength by 09/30/2019. 07/31/2019: Pt is performing progressive HEP. Reviewed all exercises today. LTG Duration 8 weeks Assessment Summary Assessment Periosteal fascial tension treated today. Con't to address. Initiate thoracic mobility and functional strengthening with PNF and/or body blade in future treatments. Physical Therapy Plan Frequency and Duration Frequency of Treatment 2x/Week Duration of Treatment 8 weeks Plan of Care Start Date 07/31/19 Plan of Care End Date 09/30/19 Therapeutic Interventions Therapeutic Interventions Balance Training,Canalithic Repositioning,Home Exercise Program,Joint Mobilizations, Manual Therapy,Neuromuscular Re-education,Patient/Caregiver Education,Self-Care/Home Management,Soft Tissue Mobilization,Taping, Therapeutic Activities, Therapeutic Exercises Modalities Cold Pack/Ice Massage,Electric Stimulation,Hot Packs, Ultrasound Other Therapeutic Interventions LTT Next Visit Focus/Plan Next Note Type Treatment Note Next Visit Plan Con't ther ex, assess first rib, initiate Counterstrain, thoracic mobility, pool noodle exercises.
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
--- NOTE | 2019-08-19 11:15 | PT.OTN ---
Current Diagnoses Strain of muscle(s) and tendon(s) of the rotator cuff of right shoulder, initial encounter (08/19/19) Physical Therapy Treatment Note PT-OP-A Visit Information Start: 06/02/19 08:18 Freq: Status: Active Protocol: Document 08/19/19 10:27 MB (Rec: 08/19/19 11:15 MB [id number]) Out-Patient Physical Therapy Visit Information Visit Information Visit Type Treatment Note Visit Note [employer] Visit Start Time 10:27 Visit Stop Time 11:12 Total Visit Minutes 45 Visit Number 6 PT-OP-B Current Condition Start: 06/02/19 08:18 Freq: Status: Active Protocol: Document 06/02/19 16:02 MB (Rec: 06/02/19 16:50 MB [id number]) Current Condition History of Current Condition Onset Date 10 months ago, after moving from [place] History of Current Condition Pt reports 2/10 right shoulder and lateral and posterior elbow that is worse with chopping tasks in the kitchen. She sleeps on her side with her left hand occ neutral and occ flexed. Pt has an old right shoulder injury with lifting heavy axe over right shoulder 5 years ago. She had PT for her shoulder. Prior Treatments and Tests Dry needling right shoulder and elbow Treatment Goals Patient/Caregiver Goals Pt's goal is to be able to cook without pain. PT-OP-C Subjective Start: 06/02/19 08:18 Freq: Status: Active Protocol: Document 08/19/19 10:27 MB (Rec: 08/19/19 11:15 MB [id number]) OP-PT Subjective Patient Comments Patient Comments Pt states that her right arm was sore after last treatment but that she felt a lot was released with different manual technique. Pt brings in pool noodle today. Pt states that her right elbow is feeling 40% better. She is sleeping better. PT-OP-K Range of Motion Start: 06/02/19 08:18 Freq: Status: Active Protocol: Document 06/02/19 16:02 MB (Rec: 06/02/19 18:12 MB [id number]) Cervical Spine Range of Motion Cervical Spine Active Testing Position Standing Flexion 40 Extension 34 Rotation Left 45 Rotation Right 55 Lateral Flexion Left 25 Lateral Flexion Right 16 Shoulder Goniometric Range of Motion Shoulder Left Shoulder ROM WFL Yes Internal Rotation Behind Back (text) Pt is hypermobile Right Shoulder ROM WFL Yes Internal Rotation Behind Back (text) Pt is hypermobile PT-OP-M Strength Start: 06/02/19 08:18 Freq: Status: Active Protocol: Document 06/02/19 16:02 MB (Rec: 06/02/19 18:12 MB [id number]) Shoulder Strength Shoulder Manual Muscle Testing Left Flexion 5 Normal Abduction (C5) 5 Normal External Rotation 5 Normal Internal Rotation 5 Normal Right Flexion 5 Normal Abduction (C5) 3 Fair External Rotation 3+ Fair+ Internal Rotation 4 Good Elbow/Forearm Strength Elbow and Forearm Manual Muscle Testing Left Flexion (C6) 5 Normal Extension (C7) 5 Normal Pronation 3+ Fair+ Supination 3+ Fair+ Right Flexion (C6) 5 Normal Extension (C7) 5 Normal Pronation 5 Normal Supination 5 Normal Wrist Strength Wrist Manual Muscle Testing Left Flexion (C7) 5 Normal Extension (C6) 5 Normal Right Flexion (C7) 5 Normal Extension (C6) 4 Good Hand Sports Medicine Trainer/Pinch Strength Hand Strength Left Comments 43 lb, 36 lb, 42 lb Right Comments 55 lb, 65 lb, 55 lb PT-OP-Q Treatments Start: 06/02/19 08:18 Freq: Status: Active Protocol: Document 08/19/19 10:27 MB (Rec: 08/19/19 11:15 MB [id number]) Therapeutic Exercises Supine Exercises Pool noodle ex--core, shoulder and thoracic stretches Supine Exercise Name HS, march, abduction hips, pelvic tilt, abdominal drawing in, pect stretch Reps/Minutes 10 reps all, added to HEP Comments Shoulder flexion, shoulder ER level 1 band Sitting Exercises Quad rolling Comments Rolling pin STM quads Manual Therapy Treatment Other Other Manual Treatments Prone rib recoil and thoracic PA recoil PT-OP-T Assessment and Plan Start: 06/02/19 08:18 Freq: Status: Active Protocol: Document 08/19/19 10:27 MB (Rec: 08/19/19 11:15 MB [id number]) Physical Therapy Assessment Goals 5 Jail Goal (LTG) Pt will be able to perform chopping in kitchen for 10 minutes with right hand with reports of 90% improvement in pain by 09/30/2019. 07/31/2019: Arm pain in kitchen is similar. LTG Duration 8 weeks 4 Impairment QuickDASH score reflects 13.63 % impairment Pacu Rn Goal (LTG) Pt will present with QuickDASH score reflecting no more than 10% impairment to allow return to cooking tasks without pain by 09/30/2019. 07/31/2019: QuickDASH score reflects 61.36% impairment. LTG Duration 8 weeks 3 Jail Goal (LTG) Pt will present with improved B shoulder abduction, external rotation, internal rotation and wrist pronation and supination strength to 5/5 by 09/30/2019. 07/31/2019: MMT today: shoulder abduction right 4/5 and pain 5/10, left 5/5; ER right 3+/5 and pain 2/10, left 4/5; B IR 5/5; B elbow flexion and extension, wrist extension, flexion, pronation and supination 5/5. LTG Duration 8 weeks 2 Jail Goal (LTG) Pt will perform progressive HEP with I to improve strength by 09/30/2019. 07/31/2019: Pt is performing progressive HEP. Reviewed all exercises today. LTG Duration 8 weeks Assessment Summary Assessment Progressed strengthening over pool noodle today, con't flexibility and strengthening, consider body blade. Ongoing thoracic mobility. Physical Therapy Plan Frequency and Duration Frequency of Treatment 2x/Week Duration of Treatment 8 weeks Plan of Care Start Date 07/31/19 Plan of Care End Date 09/30/19 Therapeutic Interventions Therapeutic Interventions Balance Training,Canalithic Repositioning,Home Exercise Program,Joint Mobilizations, Manual Therapy,Neuromuscular Re-education,Patient/Caregiver Education,Self-Care/Home Management,Soft Tissue Mobilization,Taping, Therapeutic Activities, Therapeutic Exercises Modalities Cold Pack/Ice Massage,Electric Stimulation,Hot Packs, Ultrasound Other Therapeutic Interventions LTT Next Visit Focus/Plan Next Note Type Treatment Note Next Visit Plan Consider trying body blade in the future, QL stretch
--- NOTE | 2019-08-26 11:15 | PT.OTN ---
Current Diagnoses Strain of muscle(s) and tendon(s) of the rotator cuff of right shoulder, initial encounter (08/26/19) Physical Therapy Treatment Note PT-OP-A Visit Information Start: 06/02/19 08:18 Freq: Status: Active Protocol: Document 08/26/19 10:31 MB (Rec: 08/26/19 11:15 MB [id number]) Out-Patient Physical Therapy Visit Information Visit Information Visit Type Treatment Note Visit Note [employer] Visit Start Time 10:31 Visit Stop Time 11:15 Total Visit Minutes 44 Visit Number 7 PT-OP-B Current Condition Start: 06/02/19 08:18 Freq: Status: Active Protocol: Document 06/02/19 16:02 MB (Rec: 06/02/19 16:50 MB [id number]) Current Condition History of Current Condition Onset Date 10 months ago, after moving from [place] History of Current Condition Pt reports 2/10 right shoulder and lateral and posterior elbow that is worse with chopping tasks in the kitchen. She sleeps on her side with her left hand occ neutral and occ flexed. Pt has an old right shoulder injury with lifting heavy axe over right shoulder 5 years ago. She had PT for her shoulder. Prior Treatments and Tests Dry needling right shoulder and elbow Treatment Goals Patient/Caregiver Goals Pt's goal is to be able to cook without pain. PT-OP-C Subjective Start: 06/02/19 08:18 Freq: Status: Active Protocol: Document 08/26/19 10:31 MB (Rec: 08/26/19 11:15 MB [id number]) OP-PT Subjective Patient Comments Patient Comments Pt states that her arm is coming along. She has questions about exercises. PT-OP-K Range of Motion Start: 06/02/19 08:18 Freq: Status: Active Protocol: Document 06/02/19 16:02 MB (Rec: 06/02/19 18:12 MB [id number]) Cervical Spine Range of Motion Cervical Spine Active Testing Position Standing Flexion 40 Extension 34 Rotation Left 45 Rotation Right 55 Lateral Flexion Left 25 Lateral Flexion Right 16 Shoulder Goniometric Range of Motion Shoulder Left Shoulder ROM WFL Yes Internal Rotation Behind Back (text) Pt is hypermobile Right Shoulder ROM WFL Yes Internal Rotation Behind Back (text) Pt is hypermobile PT-OP-M Strength Start: 06/02/19 08:18 Freq: Status: Active Protocol: Document 06/02/19 16:02 MB (Rec: 06/02/19 18:12 MB [id number]) Shoulder Strength Shoulder Manual Muscle Testing Left Flexion 5 Normal Abduction (C5) 5 Normal External Rotation 5 Normal Internal Rotation 5 Normal Right Flexion 5 Normal Abduction (C5) 3 Fair External Rotation 3+ Fair+ Internal Rotation 4 Good Elbow/Forearm Strength Elbow and Forearm Manual Muscle Testing Left Flexion (C6) 5 Normal Extension (C7) 5 Normal Pronation 3+ Fair+ Supination 3+ Fair+ Right Flexion (C6) 5 Normal Extension (C7) 5 Normal Pronation 5 Normal Supination 5 Normal Wrist Strength Wrist Manual Muscle Testing Left Flexion (C7) 5 Normal Extension (C6) 5 Normal Right Flexion (C7) 5 Normal Extension (C6) 4 Good Hand Radio Program Director/Pinch Strength Hand Strength Left Comments 43 lb, 36 lb, 42 lb Right Comments 55 lb, 65 lb, 55 lb PT-OP-Q Treatments Start: 06/02/19 08:18 Freq: Status: Active Protocol: Document 08/26/19 10:31 MB (Rec: 08/26/19 11:15 MB [id number]) Therapeutic Exercises Supine Exercises Pool noodle ex--core, shoulder and thoracic stretches Reps/Minutes 5 reps all Comments Shoulder flexion, pect stretch , scissoring with shoulders Standing Exercises Body blade Comments CxT blade with shoulder, core and balance exercises Manual Therapy Treatment Other Other Manual Treatments Prone rib recoild and thoracic Pt prone: PA recoil, MWM right latissimus dorsi and levator scapula with PT providing trigger point pressure and pt performing AROM, right scapular mobs PT-OP-T Assessment and Plan Start: 06/02/19 08:18 Freq: Status: Active Protocol: Document 08/26/19 10:31 MB (Rec: 08/26/19 11:15 MB [id number]) Physical Therapy Assessment Rehab Potential Rehabilitation Potential Excellent Evaluation Complexity Number of Personal Factors/Comorbidities 0 Number of Body Systems Impaired 1-2 Clinical Presentation at Evaluation Stable Impairments Impairments Pain,Strength Goals 5 Intermediate Goal (LTG) Pt will be able to perform chopping in kitchen for 10 minutes with right hand with reports of 90% improvement in pain by 09/30/2019. 07/31/2019: Arm pain in kitchen is similar. LTG Duration 8 weeks 4 Impairment QuickDASH score reflects 13.63 % impairment Intermediate Goal (LTG) Pt will present with QuickDASH score reflecting no more than 10% impairment to allow return to cooking tasks without pain by 09/30/2019. 07/31/2019: QuickDASH score reflects 61.36% impairment. LTG Duration 8 weeks 3 Intermediate Goal (LTG) Pt will present with improved B shoulder abduction, external rotation, internal rotation and wrist pronation and supination strength to 5/5 by 09/30/2019. 07/31/2019: MMT today: shoulder abduction right 4/5 and pain 5/10, left 5/5; ER right 3+/5 and pain 2/10, left 4/5; B IR 5/5; B elbow flexion and extension, wrist extension, flexion, pronation and supination 5/5. LTG Duration 8 weeks 2 Ornamental Metal Fabricator Apprentice Goal (LTG) Pt will perform progressive HEP with I to improve strength by 09/30/2019. 07/31/2019: Pt is performing progressive HEP. Reviewed all exercises today. LTG Duration 8 weeks Assessment Summary Assessment Trialed body blade today and pt to think about getting one. Pt with myofascial trigger points right levator scap, latissimus and distal sub scap and serratus today. Pt to con 't with racquet ball at home. Physical Therapy Plan Frequency and Duration Frequency of Treatment 2x/Week Duration of Treatment 8 weeks Plan of Care Start Date 07/31/19 Plan of Care End Date 09/30/19 Therapeutic Interventions Therapeutic Interventions Balance Training,Canalithic Repositioning,Home Exercise Program,Joint Mobilizations, Manual Therapy,Neuromuscular Re-education,Patient/Caregiver Education,Self-Care/Home Management,Soft Tissue Mobilization,Taping, Therapeutic Activities, Therapeutic Exercises Modalities Cold Pack/Ice Massage,Electric Stimulation,Hot Packs, Ultrasound Other Therapeutic Interventions LTT Next Visit Focus/Plan Next Note Type Treatment Note Next Visit Plan Consider QL stretch, latissimus dorsi
--- NOTE | 2019-09-02 15:55 | PT.OTN ---
Current Diagnoses Strain of muscle(s) and tendon(s) of the rotator cuff of right shoulder, initial encounter (09/02/19) Physical Therapy Treatment Note PT-OP-A Visit Information Start: 06/02/19 08:18 Freq: Status: Active Protocol: Document 09/02/19 15:10 MB (Rec: 09/02/19 15:55 MB [id number]) Out-Patient Physical Therapy Visit Information Visit Information Visit Type Treatment Note Visit Note [employer] Visit Start Time 15:10 Visit Stop Time 15:54 Total Visit Minutes 44 Visit Number 8 PT-OP-B Current Condition Start: 06/02/19 08:18 Freq: Status: Active Protocol: Document 06/02/19 16:02 MB (Rec: 06/02/19 16:50 MB [id number]) Current Condition History of Current Condition Onset Date 10 months ago, after moving from [place] History of Current Condition Pt reports 2/10 right shoulder and lateral and posterior elbow that is worse with chopping tasks in the kitchen. She sleeps on her side with her left hand occ neutral and occ flexed. Pt has an old right shoulder injury with lifting heavy axe over right shoulder 5 years ago. She had PT for her shoulder. Prior Treatments and Tests Dry needling right shoulder and elbow Treatment Goals Patient/Caregiver Goals Pt's goal is to be able to cook without pain. PT-OP-C Subjective Start: 06/02/19 08:18 Freq: Status: Active Protocol: Document 09/02/19 15:10 MB (Rec: 09/02/19 15:55 MB [id number]) OP-PT Subjective Patient Comments Patient Comments Pt brings in the rolling pin that she bought online. She feels that things are getting to work as one unit. The pool noodle core work is opening up her hips and back. The body blade is not for her. PT-OP-K Range of Motion Start: 06/02/19 08:18 Freq: Status: Active Protocol: Document 06/02/19 16:02 MB (Rec: 06/02/19 18:12 MB [id number]) Cervical Spine Range of Motion Cervical Spine Active Testing Position Standing Flexion 40 Extension 34 Rotation Left 45 Rotation Right 55 Lateral Flexion Left 25 Lateral Flexion Right 16 Shoulder Goniometric Range of Motion Shoulder Left Shoulder ROM WFL Yes Internal Rotation Behind Back (text) Pt is hypermobile Right Shoulder ROM WFL Yes Internal Rotation Behind Back (text) Pt is hypermobile PT-OP-M Strength Start: 06/02/19 08:18 Freq: Status: Active Protocol: Document 06/02/19 16:02 MB (Rec: 06/02/19 18:12 MB [id number]) Shoulder Strength Shoulder Manual Muscle Testing Left Flexion 5 Normal Abduction (C5) 5 Normal External Rotation 5 Normal Internal Rotation 5 Normal Right Flexion 5 Normal Abduction (C5) 3 Fair External Rotation 3+ Fair+ Internal Rotation 4 Good Elbow/Forearm Strength Elbow and Forearm Manual Muscle Testing Left Flexion (C6) 5 Normal Extension (C7) 5 Normal Pronation 3+ Fair+ Supination 3+ Fair+ Right Flexion (C6) 5 Normal Extension (C7) 5 Normal Pronation 5 Normal Supination 5 Normal Wrist Strength Wrist Manual Muscle Testing Left Flexion (C7) 5 Normal Extension (C6) 5 Normal Right Flexion (C7) 5 Normal Extension (C6) 4 Good Hand Machine Group Leader/Pinch Strength Hand Strength Left Comments 43 lb, 36 lb, 42 lb Right Comments 55 lb, 65 lb, 55 lb PT-OP-Q Treatments Start: 06/02/19 08:18 Freq: Status: Active Protocol: Document 09/02/19 15:10 MB (Rec: 09/02/19 15:55 MB [id number]) Therapeutic Exercises Standing Exercises Wall latissimus and QL stretches, thread the needle Comments Performed today B, hold 30 sec Other Exercises Ed pt in incremental increases of TB for shoulder exercises Comments Provided teal band and re-ed in ex Added half x AROM over pool noodle Comments Pt to try at home Manual Therapy Treatment Other Other Manual Treatments Prone rib recoil and thoracic PA mobs grade III-IV. MWM right infraspinatus with PT providing trigger point pressure and pt performing active shoulder ER and IR PT-OP-T Assessment and Plan Start: 06/02/19 08:18 Freq: Status: Active Protocol: Document 09/02/19 15:10 MB (Rec: 09/02/19 15:55 MB [id number]) Physical Therapy Assessment Goals 5 Shelter Goal (LTG) Pt will be able to perform chopping in kitchen for 10 minutes with right hand with reports of 90% improvement in pain by 09/30/2019. 07/31/2019: Arm pain in kitchen is similar. LTG Duration 8 weeks 4 Impairment QuickDASH score reflects 13.63 % impairment Shelter Goal (LTG) Pt will present with QuickDASH score reflecting no more than 10% impairment to allow return to cooking tasks without pain by 09/30/2019. 07/31/2019: QuickDASH score reflects 61.36% impairment. LTG Duration 8 weeks 3 Mail Order Sorter Goal (LTG) Pt will present with improved B shoulder abduction, external rotation, internal rotation and wrist pronation and supination strength to 5/5 by 09/30/2019. 07/31/2019: MMT today: shoulder abduction right 4/5 and pain 5/10, left 5/5; ER right 3+/5 and pain 2/10, left 4/5; B IR 5/5; B elbow flexion and extension, wrist extension, flexion, pronation and supination 5/5. LTG Duration 8 weeks 2 Mail Order Sorter Goal (LTG) Pt will perform progressive HEP with I to improve strength by 09/30/2019. 07/31/2019: Pt is performing progressive HEP. Reviewed all exercises today. LTG Duration 8 weeks Assessment Summary Assessment Progressed QL, lats and thoracic flexibility today. Con't manual work for thoracic mobility today. Anticipate d/ t next treatment date. Physical Therapy Plan Frequency and Duration Frequency of Treatment 2x/Week Duration of Treatment 8 weeks Plan of Care Start Date 07/31/19 Plan of Care End Date 09/30/19 Therapeutic Interventions Therapeutic Interventions Balance Training,Canalithic Repositioning,Home Exercise Program,Joint Mobilizations, Manual Therapy,Neuromuscular Re-education,Patient/Caregiver Education,Self-Care/Home Management,Soft Tissue Mobilization,Taping, Therapeutic Activities, Therapeutic Exercises Modalities Cold Pack/Ice Massage,Electric Stimulation,Hot Packs, Ultrasound Other Therapeutic Interventions LTT Next Visit Focus/Plan Next Note Type Discharge Summary
--- NOTE | 2019-09-09 08:58 | PT.OTN ---
Current Diagnoses Strain of muscle(s) and tendon(s) of the rotator cuff of right shoulder, initial encounter (09/09/19) Physical Therapy Treatment Note PT-OP-A Visit Information Start: 06/02/19 08:18 Freq: Status: Active Protocol: Document 09/09/19 08:21 MB (Rec: 09/09/19 08:58 MB [id number]) Out-Patient Physical Therapy Visit Information Visit Information Visit Type Treatment Note Visit Note [employer] Visit Start Time 08:21 Visit Stop Time 09:00 Total Visit Minutes 39 Visit Number 9 PT-OP-B Current Condition Start: 06/02/19 08:18 Freq: Status: Active Protocol: Document 06/02/19 16:02 MB (Rec: 06/02/19 16:50 MB [id number]) Current Condition History of Current Condition Onset Date 10 months ago, after moving from [place] History of Current Condition Pt reports 2/10 right shoulder and lateral and posterior elbow that is worse with chopping tasks in the kitchen. She sleeps on her side with her left hand occ neutral and occ flexed. Pt has an old right shoulder injury with lifting heavy axe over right shoulder 5 years ago. She had PT for her shoulder. Prior Treatments and Tests Dry needling right shoulder and elbow Treatment Goals Patient/Caregiver Goals Pt's goal is to be able to cook without pain. PT-OP-C Subjective Start: 06/02/19 08:18 Freq: Status: Active Protocol: Document 09/09/19 08:21 MB (Rec: 09/09/19 08:58 MB [id number]) OP-PT Subjective Patient Comments Patient Comments Pt is riding stationary bike at home just a little bit. It feels like sore muscles and arms. PT-OP-K Range of Motion Start: 06/02/19 08:18 Freq: Status: Active Protocol: Document 06/02/19 16:02 MB (Rec: 06/02/19 18:12 MB [id number]) Cervical Spine Range of Motion Cervical Spine Active Testing Position Standing Flexion 40 Extension 34 Rotation Left 45 Rotation Right 55 Lateral Flexion Left 25 Lateral Flexion Right 16 Shoulder Goniometric Range of Motion Shoulder Left Shoulder ROM WFL Yes Internal Rotation Behind Back (text) Pt is hypermobile Right Shoulder ROM WFL Yes Internal Rotation Behind Back (text) Pt is hypermobile PT-OP-M Strength Start: 06/02/19 08:18 Freq: Status: Active Protocol: Document 06/02/19 16:02 MB (Rec: 06/02/19 18:12 MB [id number]) Shoulder Strength Shoulder Manual Muscle Testing Left Flexion 5 Normal Abduction (C5) 5 Normal External Rotation 5 Normal Internal Rotation 5 Normal Right Flexion 5 Normal Abduction (C5) 3 Fair External Rotation 3+ Fair+ Internal Rotation 4 Good Elbow/Forearm Strength Elbow and Forearm Manual Muscle Testing Left Flexion (C6) 5 Normal Extension (C7) 5 Normal Pronation 3+ Fair+ Supination 3+ Fair+ Right Flexion (C6) 5 Normal Extension (C7) 5 Normal Pronation 5 Normal Supination 5 Normal Wrist Strength Wrist Manual Muscle Testing Left Flexion (C7) 5 Normal Extension (C6) 5 Normal Right Flexion (C7) 5 Normal Extension (C6) 4 Good Hand Molder Bench/Pinch Strength Hand Strength Left Comments 43 lb, 36 lb, 42 lb Right Comments 55 lb, 65 lb, 55 lb PT-OP-Q Treatments Start: 06/02/19 08:18 Freq: Status: Active Protocol: Document 09/09/19 08:21 MB (Rec: 09/09/19 08:58 MB [id number]) Therapeutic Exercises Other Exercises Pt has no HEP questions, reviewed as needed verbally Comments Pt reviews all exercises today and answers questions Manual Therapy Treatment Other Other Manual Treatments Prone rib recoil and thoracic PA mobs, STM right paraspinals PT-OP-T Assessment and Plan Start: 06/02/19 08:18 Freq: Status: Active Protocol: Document 09/09/19 08:21 MB (Rec: 09/09/19 08:58 MB [id number]) Physical Therapy Assessment Goals 5 Tax Compliance Manager Goal (LTG) Pt will be able to perform chopping in kitchen for 10 minutes with right hand with reports of 90% improvement in pain by 09/30/2019. 09/09/2019: Pt reports that she can chop longer than 10 minutes and have a little bit of discomfort later LTG Duration 8 weeks 4 Impairment QuickDASH score reflects 13.63 % impairment Tax Compliance Manager Goal (LTG) Pt will present with QuickDASH score reflecting no more than 10% impairment to allow return to cooking tasks without pain by 09/30/2019. 09/09/2019: QuickDASH score is 11.36% LTG Duration 8 weeks 3 Correction Goal (LTG) Pt will present with improved B shoulder abduction, external rotation, internal rotation and wrist pronation and supination strength to 5/5 by 09/30/2019. 09/09/2019: MMT today: shoulder abduction right 5/5 and no pain; left 5/5; ER B 5/5 and no pain; B IR 5/5; B elbow flexion and extension, wrist extension, flexion, pronation and supination 5/5. LTG Duration 8 weeks 2 Tax Compliance Manager Goal (LTG) Pt will perform progressive HEP with I to improve strength by 09/30/2019. 09/09/2019: Pt is performing HEP with I LTG Duration 8 weeks Assessment Summary Assessment Pt has met strength, HEP and pain goals. She has progressed with QuickDASH score. She is ready for d/c and will con't with HEP. Physical Therapy Plan Frequency and Duration Frequency of Treatment 2x/Week Duration of Treatment 8 weeks Plan of Care Start Date 07/31/19 Plan of Care End Date 09/30/19 Therapeutic Interventions Therapeutic Interventions Balance Training,Canalithic Repositioning,Home Exercise Program,Joint Mobilizations, Manual Therapy,Neuromuscular Re-education,Patient/Caregiver Education,Self-Care/Home Management,Soft Tissue Mobilization,Taping, Therapeutic Activities, Therapeutic Exercises Modalities Cold Pack/Ice Massage,Electric Stimulation,Hot Packs, Ultrasound Other Therapeutic Interventions LTT
== END 2019-09-10 10:06 ==
LOC: PHYS 08:15
PROVIDERS: PCP Family Medicine; Referring Provider Family Medicine; Visit Provider Family Medicine
DX: S46.011A Strain of muscle(s) and tendon(s) of the rotator cuff of right shoulder, initial encounter (principal)
CPT/HCPCS: 97110; 97140; 97161

== ENCOUNTER → 2020-05-19 07:35 | Outpatient (CLI) | payer MEDICARE, SELFPAY ==
[2020-05-19 08:29] LABS: Add Manual Diff / Slide Review NO; Basophils Absolute Auto 0 /uL (0-100); Basophils Percent Auto 0.5 % (0-2); Eosinophils Absolute Auto 100 /uL (0-450); Eosinophils Percent Auto 1.9 % (2-4); Hematocrit 37.3 % (36-46); Hemoglobin 12.6 g/dL (12.0-16.0); Lymphocytes Absolute Auto 1600 /uL (1100-4500); Mean Corpuscular HGB Conc 33.7 % (30-36); Mean Corpuscular Hemoglobin 30.3 PG (26-34); Mean Corpuscular Volume 89.9 fL (80-100); Monocytes Absolute Auto 400 /uL (0-900); Monocytes Percent Auto 7.4 % (3-14); Neutrophils Absolute Auto 3500 /uL (1500-7000); Neutrophils Percent Auto 62.2 % (50-75); Platelet Count 226 X10^3/uL (150-400); Red Blood Cell Count 4.15 X10^6/uL (4.0-5.2); Red Cell Distribution Width 13.5 % (11.6-14.8); White Blood Cell Count 5.6 X10^3/uL (4.5-11.0)
[2020-05-19 08:56] LABS: Alanine Aminotransferase 24 IU/L (<35); Albumin 4.3 g/dL (3.5-5.0); Albumin Globulin Ratio 1.5 (1.0-2.8); Alkaline Phosphatase 81 U/L (38-126); Aspartate Aminotransferase 38 IU/L (14-36); BUN Creatinine Ratio 16.9 (6-22); Bilirubin Total 0.3 mg/dL (0.2-1.3); Blood Urea Nitrogen 12 mg/dL (7-17); Calcium 9.2 mg/dL (8.4-10.2); Carbon Dioxide 32 mmol/L (22-32); Chloride 102 mmol/L (98-107); Estimated Glomerular Filt Rate > 60.0 mL/min (>60); Globulin 2.8 g/dL (1.7-4.1); Glucose 81 mg/dL (80-110); HEMOLYSIS < 15 (0-50); Potassium 3.7 mmol/L (3.4-5.1); Sodium 137 mmol/L (137-145); Total Protein 7.1 g/dL (6.3-8.2)
[2020-05-19 09:03] LABS: C-Reactive Protein Quant < 0.5 mg/dL (<1.0)
[2020-05-19 09:27] LABS: TSH w/ Reflex to FT4 3.17 uIU/mL (0.47-4.68)
[2020-05-19 09:29] LABS: Ferritin 14 ng/mL (11-264)
[2020-05-20 08:10] LABS: Insulin Level Total 2.7 uIU/mL (2.6-24.9)
[2020-06-03 13:14] LABS: LDL Particle SEE SEPARATE REPORTS
== END ==
PROVIDERS: PCP Family Medicine; Referring Provider Family Medicine; Visit Provider Family Medicine
DX: E78.5 Hyperlipidemia, unspecified (principal); I10 Essential (primary) hypertension; R53.83 Other fatigue
CPT/HCPCS: 36415; 80053; 80061; 82728; 83525; 83704; 84443; 85025; 86140

== ENCOUNTER → 2020-05-27 07:55 | Outpatient (CLI) | payer MEDICARE, SELFPAY ==
[2020-05-27] MEDS: COVID-19 VACC, Ad26(JANSSEN)/PF 0.5 ML IM (08:05)
== END ==
PROVIDERS: PCP Family Medicine; Visit Provider Internal Medicine
DX: Z23 Encounter for immunization (principal)
CPT/HCPCS: 0031A; 91303

== ENCOUNTER → 2021-06-21 08:21 | Outpatient (CLI) | payer MEDICARE, SELFPAY ==
[2021-06-21 10:20] LABS: Add Manual Diff / Slide Review NO; Basophils Absolute Auto 0 /uL (0-100); Basophils Percent Auto 0.7 % (0-2); Eosinophils Absolute Auto 200 /uL (0-450); Eosinophils Percent Auto 2.8 % (2-4); Hematocrit 38.2 % (36-46); Hemoglobin 13.2 g/dL (12.0-16.0); Lymphocytes Absolute Auto 1700 /uL (1100-4500); Mean Corpuscular HGB Conc 34.6 % (30-36); Mean Corpuscular Hemoglobin 30.5 PG (26-34); Mean Corpuscular Volume 88.2 fL (80-100); Monocytes Absolute Auto 500 /uL (0-900); Monocytes Percent Auto 8.7 % (3-14); Neutrophils Absolute Auto 3200 /uL (1500-7000); Neutrophils Percent Auto 56.8 % (50-75); Platelet Count 260 X10^3/uL (150-400); Red Blood Cell Count 4.33 X10^6/uL (4.0-5.2); Red Cell Distribution Width 13.4 % (11.6-14.8); White Blood Cell Count 5.6 X10^3/uL (4.5-11.0)
[2021-06-21 10:28] LABS: Alanine Aminotransferase 27 IU/L (<35); Albumin 4.6 g/dL (3.5-5.0); Albumin Globulin Ratio 1.5 (1.0-2.8); Alkaline Phosphatase 74 U/L (38-126); Aspartate Aminotransferase 40 IU/L (14-36); BUN Creatinine Ratio 18.5 (6-22); Bilirubin Total 0.5 mg/dL (0.2-1.3); Blood Urea Nitrogen 15 mg/dL (7-17); Calcium 9.4 mg/dL (8.4-10.2); Carbon Dioxide 31 mmol/L (22-32); Chloride 101 mmol/L (98-107); Cholesterol 298 mg/dL (140-199); Estimated Glomerular Filt Rate > 60.0 mL/min (>60); Globulin 3.1 g/dL (1.7-4.1); Glucose 78 mg/dL (80-110); HDL Cholesterol 92 mg/dL (40-60); HEMOLYSIS < 15 (0-50); LDL Cholesterol Calculated 180 mg/dL (<100); Potassium 3.8 mmol/L (3.4-5.1); Sodium 140 mmol/L (137-145); Total Protein 7.7 g/dL (6.3-8.2); Triglycerides 132 mg/dL (35-150)
[2021-06-21 10:47] LABS: Free T3, Triiodothyronine Free 2.62 pg/mL (2.77-5.27); Free T4, Direct Thyroxine 1.12 ng/dL (0.78-2.19)
[2021-06-21 11:00] LABS: Thyroid Stimulating Hormone 2.87 uIU/mL (0.47-4.68)
== END ==
PROVIDERS: PCP Family Medicine; Referring Provider Family Medicine; Visit Provider Family Medicine
DX: E78.5 Hyperlipidemia, unspecified (principal); I10 Essential (primary) hypertension; R53.82 Chronic fatigue, unspecified
CPT/HCPCS: 36415; 80053; 80061; 84439; 84443; 84481; 85025

== ENCOUNTER 2022-02-02 13:45 | Outpatient (RCR) | payer MEDICARE, SELFPAY ==
--- NOTE | 2021-11-30 18:25 | PT.OIE ---
Current Diagnoses Stress incontinence (female) (male) (11/30/21) Past Medical History (Last Updated 10/17/21 @ 15:02 by Wayne Toledo DO) 65 years of age or older Allergies Biceps tendinitis of right shoulder Bilateral leg cramps Cervical somatic dysfunction Chronic left hip pain Fatigue Iliotibial band syndrome of both sides Iliotibial band syndrome, left leg Knee problem Pelvic somatic dysfunction Pes anserinus bursitis of both knees Piriformis syndrome of left side Right elbow pain Right shoulder pain Screening for breast cancer Segmental and somatic dysfunction of rib cage Somatic dysfunction of both lower extremities Stiff neck Strain of tendon of right rotator cuff Stress incontinence Upper extremity somatic dysfunction Vision disorder Past Surgical History (Last Updated 02/10/19 @ 19:58 by Serenity Marrero) Anesthesia History of appendectomy (~1968) History of eye surgery (~2011) History of radial keratotomy (~1986) History of tubal ligation (~1974) Hx of LASIK (~1989) Visit Care Team Role Provider Type Wayne Toledo DO Attending Provider Physician Family Provider Primary Care Provider Referring Provider Specialty: Family Practice Address: [address] [place] [address] Email: Physical Therapy Initial Evaluation PT-OP-A Visit Information Start: 11/30/21 09:07 Freq: Status: Active Protocol: Document 11/30/21 10:35 [facility] (Rec: 11/30/21 10:44 [facility] [id number]) Out-Patient Physical Therapy Visit Information Visit Information Visit Type Initial Evaluation Visit Start Time 10:35 Visit Stop Time 11:15 Total Visit Minutes 40 Visit Number 1 Evaluation Information Evaluation Date 11/30/21 PT-OP-B Current Condition Start: 11/30/21 09:07 Freq: Status: Active Protocol: Document 11/30/21 10:35 [facility] (Rec: 11/30/21 10:44 [facility] [id number]) Current Condition History of Current Condition Onset Date 2003 Current Complaints urinary stress incontinence History of Current Condition 2003 was exposed to toxic mold , in 2015 she hit a wall and had to stop working she became very weak and feels this is when she started experiencing urinary stress incontinence. She also experienced urgency but she has worked hard on exercises and this is better. Briana notes she has been working on pelvic floor strengthening on her own and feels like her symptoms have been decreasing Treatment Goals Patient/Caregiver Goals Pts goals include increasing strength of her pelvci floor and eliminating urinary stress incontinence PT-OP-I Pelvic Floor Start: 11/30/21 09:07 Freq: Status: Active Protocol: Document 11/30/21 10:35 [facility] (Rec: 11/30/21 11:06 [facility] [id number]) Pelvic Floor Assessment Urine Pelvic Floor Surgery No Other Urinary Symptoms nocturia Nocturia 3-4 times per night Pelvic Clock Pelvic Clock 12-3 Atrophy Pelvic Clock 3-6 Atrophy Pelvic Clock 6-9 Atrophy Pelvic Clock 9-12 Atrophy SEMG (uV) Baseline 2.0 10 Second Contraction 6.0 Contraction Ability Voluntary Contraction Weak Voluntary Relaxation Weak Manual Muscle Testing Left 2 Manual Muscle Testing Right 3 Manual Muscle Testing Anterior 3 Manual Muscle Testing Posterior 3 Muscle Endurance (Seconds) 5 Comments Pelvic Floor Comments average 6.0 max 57.3 PT-OP-Q Treatments Start: 11/30/21 09:07 Freq: Status: Active Protocol: Document 11/30/21 10:35 [facility] (Rec: 11/30/21 11:11 [facility] [id number]) Therapeutic Exercises Supine Exercises quick flicks Reps/Minutes x 10 pelvic floor long holds Reps/Minutes x 10 reps Comments 6.0 and max 57 PT-OP-T Assessment and Plan Start: 11/30/21 09:07 Freq: Status: Active Protocol: Document 11/30/21 10:35 [facility] (Rec: 11/30/21 11:16 [facility] [id number]) Physical Therapy Assessment Rehab Potential Rehabilitation Potential Excellent Evaluation Complexity Number of Personal Factors/Comorbidities 0 Number of Body Systems Impaired 1-2 Clinical Presentation at Evaluation Stable Impairments Impairments Soft Tissue Mobility,Strength, Tone Other Impairments urinary incontinence Goals 3 Impairment decreased endurance of the levator ani Short Term Goal (STG) Briana is able to sustain a pelvic floor contraction in supine x 10 seconds STG Duration 5 weeks Angle Furnaceman Goal (LTG) Briana is able to sustain a pelvic floor contraction in standing x 5-10 seconds LTG Duration 12 weeks 2 Impairment Decreased pelvic floor strength Angle Furnaceman Goal (LTG) Briana is able to strengthen all parts of her levator ani especially the left lateral wall for improved bladder support LTG Duration 12 weeks 1 Impairment urinary stress incontinence [employer] Goal (LTG) Briana reports a overall reduction in urinary incontinence and is able to walk for exercise without leakage LTG Duration 12 weeks Assessment Summary Assessment Briana is a 71 year old female referred to PT for pelvic floor strengtheing for urinary stress incontinence symptoms. Briana notes she has been working on pelvic floor exercises on her own and feels they are improving however she still feels week and would like to gain as much strength as she can. With evaluation today Briana test 3/5 MMT for all aspects of the pelvic floor except the left lateral wall. She has more difficulty with the left illiococcygeus and test 2/5. She does report history of left sided hip pain and bursitis and this may be contributing to decreased strength in this region. She has difficulty sustaining a pelvic floor contraction. EMG biofeedback was used to assess strength and endurance of the pelvic floor and her average contraction is 6 uv. She had difficulty sustaining a pelvic floor contraction especially with multiple reps. Briana is a good candidate for pelvic floor rehab with the goal of increasing her strength and eliminating her urinary incontinence Physical Therapy Plan Frequency and Duration Frequency of Treatment 1x/Week Duration of Treatment 12 Plan of Care Start Date 11/30/21 Plan of Care End Date 03/01/22 Therapeutic Interventions Therapeutic Interventions Home Exercise Program, Neuromuscular Re-education, Patient/Caregiver Education, Self-Care/Home Management, Therapeutic Exercises Modalities Biofeedback Next Visit Focus/Plan Next Note Type Treatment Note Next Visit Plan work on adding in hip ER and gluteus medius strengthening with pelvic floor activation to help facilitate the left lateral wall of the levator ani
--- NOTE | 2021-11-30 18:26 | PT.OPPOC ---
Physical, Occupational & Speech Therapy At [facility] Current Diagnoses Stress incontinence (female) (male) (11/30/21) Visit Care Team Role Provider Type Wayne Toledo DO Attending Provider Physician Family Provider Primary Care Provider Referring Provider Specialty: Family Practice Address: [address] [place] [address], [facility] Email: Plan Of Care PT-OP-T Assessment and Plan Start: 11/30/21 09:07 Freq: Status: Active Protocol: Document 11/30/21 10:35 [facility] (Rec: 11/30/21 11:16 [facility] [id number]) Physical Therapy Assessment Rehab Potential Rehabilitation Potential Excellent Evaluation Complexity Number of Personal Factors/Comorbidities 0 Number of Body Systems Impaired 1-2 Clinical Presentation at Evaluation Stable Impairments Impairments Soft Tissue Mobility,Strength, Tone Other Impairments urinary incontinence Goals 3 Impairment decreased endurance of the levator ani Short Term Goal (STG) Briana is able to sustain a pelvic floor contraction in supine x 10 seconds STG Duration 5 weeks Fci Goal (LTG) Briana is able to sustain a pelvic floor contraction in standing x 5-10 seconds LTG Duration 12 weeks 2 Impairment Decreased pelvic floor strength Airplane Mechanic Goal (LTG) Briana is able to strengthen all parts of her levator ani especially the left lateral wall for improved bladder support LTG Duration 12 weeks 1 Impairment urinary stress incontinence Fci Goal (LTG) Briana reports a overall reduction in urinary incontinence and is able to walk for exercise without leakage LTG Duration 12 weeks Assessment Summary Assessment Briana is a 71 year old female referred to PT for pelvic floor strengthening for urinary stress incontinence symptoms. Briana notes she has been working on pelvic floor exercises on her own and feels they are improving however she still feels week and would like to gain as much strength as she can. With evaluation today Briana test 3/5 MMT for all aspects of the pelvic floor except the left lateral wall. She has more difficulty with the left illiococcygeus and test 2/5. She does report history of left sided hip pain and bursitis and this may be contributing to decreased strength in this region. She has difficulty sustaining a pelvic floor contraction. EMG biofeedback was used to assess strength and endurance of the pelvic floor and her average contraction is 6 uv. She had difficulty sustaining a pelvic floor contraction especially with multiple reps. Briana is a good candidate for pelvic floor rehab with the goal of increasing her strength and eliminating her urinary incontinence Physical Therapy Plan Frequency and Duration Frequency of Treatment 1x/Week Duration of Treatment 12 Plan of Care Start Date 11/30/21 Plan of Care End Date 03/01/22 Therapeutic Interventions Therapeutic Interventions Home Exercise Program, Neuromuscular Re-education, Patient/Caregiver Education, Self-Care/Home Management, Therapeutic Exercises Modalities Biofeedback Next Visit Focus/Plan Next Note Type Treatment Note Next Visit Plan work on adding in hip ER and gluteus medius strengthening with pelvic floor activation to help facilitate the left lateral wall of the levator ani Plan of Care Dates Plan of Care Start Date 11/30/21 Plan of Care End Date 03/01/22 Electronically Signed by: Karol Mccrary, PT 12/01/21 [id number] If you are in agreement with this Plan of Care, please return a signed and dated copy. I have reviewed this Plan of Care and certify that the skilled therapy services above are required to meet the patient?s needs. Physician Signature Date Printed Name and Credentials Clinical Instructor Signature Printed Name and Credentials
--- NOTE | 2021-12-13 17:36 | PT.OTN ---
Current Diagnoses Stress incontinence (female) (male) (12/13/21) Physical Therapy Treatment Note PT-OP-A Visit Information Start: 11/30/21 09:07 Freq: Status: Active Protocol: Document 12/13/21 13:49 [facility] (Rec: 12/13/21 14:14 [facility] [id number]) Out-Patient Physical Therapy Visit Information Visit Information Visit Type Treatment Note Visit Start Time 13:48 Visit Stop Time 14:30 Total Visit Minutes 42 Visit Number 2 PT-OP-B Current Condition Start: 11/30/21 09:07 Freq: Status: Active Protocol: Document 11/30/21 10:35 [facility] (Rec: 11/30/21 10:44 [facility] [id number]) Current Condition History of Current Condition Onset Date 2003 Current Complaints urinary stress incontinence History of Current Condition 2003 was exposed to toxic mold , in 2015 she hit a wall and had to stop working she became very weak and feels this is when she started experiencing urinary stress incontinence. She also expereinced urgency but she has worked hard on exercises and this is better. Briana notes she has been working on pelvic floor strengthening on her own and feels like her symptoms have been decreaseing Treatment Goals Patient/Caregiver Goals Pts goals include increasing strength of her pelvci floor and eliminating urinary stress incontiencne PT-OP-C Subjective Start: 11/30/21 09:07 Freq: Status: Active Protocol: Document 12/13/21 13:49 [facility] (Rec: 12/13/21 14:14 [facility] [id number]) OP-PT Subjective Patient Comments Patient Comments pt notes the exercises are helping her hip, she has been walking more and not waking up to void during the night. Bowel function has been better . Her hip busitis is bothering her still but it is better. PT-OP-I Pelvic Floor Start: 11/30/21 09:07 Freq: Status: Active Protocol: Document 11/30/21 10:35 [facility] (Rec: 11/30/21 11:06 [facility] [id number]) Pelvic Floor Assessment Urine Pelvic Floor Surgery No Other Urinary Symptoms nocturia Nocturia 3-4 times per night Pelvic Clock Pelvic Clock 12-3 Atrophy Pelvic Clock 3-6 Atrophy Pelvic Clock 6-9 Atrophy Pelvic Clock 9-12 Atrophy SEMG (uV) Baseline 2.0 10 Second Contraction 6.0 Contraction Ability Voluntary Contraction Weak Voluntary Relaxation Weak Manual Muscle Testing Left 2 Manual Muscle Testing Right 3 Manual Muscle Testing Anterior 3 Manual Muscle Testing Posterior 3 Muscle Endurance (Seconds) 5 Comments Pelvic Floor Comments average 6.0 max 57.3 PT-OP-Q Treatments Start: 11/30/21 09:07 Freq: Status: Active Protocol: Document 12/13/21 13:49 [facility] (Rec: 12/13/21 14:14 [facility] [id number]) Therapeutic Exercises Supine Exercises reverse pelvic floor exercise for eccentric control Reps/Minutes stair template x 5 reps working on eccentric lowering ball squeeze with pelvic floor activation Reps/Minutes x 10 reps holding 5 sec hip roll outs Reps/Minutes 2 x 10 reps quick flicks Reps/Minutes x 10 pelvic floor long holds Reps/Minutes x 10 reps Comments 12.0 uv average Self-Care/Home Management Treatment Education Patient Education Home Exercise Program Other Education HEP reviewed and handouts given of new exercises PT-OP-T Assessment and Plan Start: 11/30/21 09:07 Freq: Status: Active Protocol: Document 12/13/21 13:49 [facility] (Rec: 12/13/21 14:14 [facility] [id number]) Physical Therapy Assessment Assessment Summary Assessment 11/30/21 eval: Briana is a 71 year old female referred to PT for pelvic floor strengtheing for urinary stress incontinence symptoms. Briana notes she has been working on pelvic floor exercises on her own and feels they are improving however she still feels week and would like to gain as much strength as she can. With evaluation today Briana test 3/5 MMT for all aspects of the pelvic floor except the left lateral wall. She has more difficulty with the left illiococcygeus and test 2/5. She does report history of left sided hip pain and bursitis and this may be contributing to decreased strength in this region. She has difficulty sustaining a pelvic floor contraction. EMG biofeedback was used to assess strength and endurance of the pelvic floor and her average contration is 6 uv. She had difficulty sustaining a pelvic floor contraction especially with multiple reps. Briana is a good canidate for pelvic floor rehab with the goal of increasing her strength and eliminating her urinary incontinence 12/13/21 assessment: pt doing better overall this week and her strength on EMG biofeedback doubled this week as compared to initial visit. I added in hip exercises today and eccentric control with pelvic floor exercises. She tolerated this well. She will be seen x 1 additional visit to review exercises and will then be DC to a [facility] Physical Therapy Plan Frequency and Duration Frequency of Treatment 1x/Week Duration of treatment (weeks) 12 Plan of Care Start Date 11/30/21 Plan of Care End Date 03/20/22 Therapeutic Interventions Therapeutic Interventions Home Exercise Program, Neuromuscular Re-education, Patient/Caregiver Education, Self-Care/Home Management, Therapeutic Exercises Modalities Biofeedback Next Visit Focus/Plan Next Note Type Treatment Note Next Visit Plan REVIEW hip ER and gluteus medius strengthening with pelvic floor activation to help facilitate the left lateral wall of the levator ani. Work in standing pelvic floor and sit-stand next visit . Review HEP
--- NOTE | 2022-02-02 17:45 | PT.OTN ---
Current Diagnoses Stress incontinence (female) (male) (02/02/22) Physical Therapy Treatment Note PT-OP-A Visit Information Start: 11/30/21 09:07 Freq: Status: Active Protocol: Document 02/02/22 13:50 [facility] (Rec: 02/02/22 13:57 [facility] [id number]) Out-Patient Physical Therapy Visit Information Visit Information Visit Type Treatment Note Visit Start Time 13:50 Visit Stop Time 14:30 Total Visit Minutes 40 Visit Number 3 PT-OP-B Current Condition Start: 11/30/21 09:07 Freq: Status: Active Protocol: Document 11/30/21 10:35 [facility] (Rec: 11/30/21 10:44 [facility] [id number]) Current Condition History of Current Condition Onset Date 2003 Current Complaints urinary stress incontinence History of Current Condition 2003 was exposed to toxic mold , in 2015 she hit a wall and had to stop working she became very weak and feels this is when she started experiencing urinary stress incontinence. She also expereinced urgency but she has worked hard on exercises and this is better. Briana notes she has been working on pelvic floor strengthening on her own and feels like her symptoms have been decreaseing Treatment Goals Patient/Caregiver Goals Pts goals include increasing strength of her pelvci floor and eliminating urinary stress incontiencne PT-OP-C Subjective Start: 11/30/21 09:07 Freq: Status: Active Protocol: Document 02/02/22 13:50 [facility] (Rec: 02/02/22 13:57 [facility] [id number]) OP-PT Subjective Patient Comments Patient Comments pt notes she missed a couple of appointments due to working on a detox for the mold exposure. She is starting to feel that her muscles are stronger now and she is feeling that the exercises are helping the prolapsed rectum. SHe is taking a colon cleanse. She was able to return to [facility]. Briana feels at this point she is ready to discontinue PT and work IND with her exercises after today's visit Patient Reported Progress Improving PT-OP-I Pelvic Floor Start: 11/30/21 09:07 Freq: Status: Active Protocol: Document 02/02/22 13:50 [facility] (Rec: 02/02/22 14:09 [facility] [id number]) Pelvic Floor Assessment Urine Nocturia now 1-2 times per night and that is usually at the beginning of the evening Contraction Ability Manual Muscle Testing Left 4 Manual Muscle Testing Right 4 Manual Muscle Testing Anterior 4 Manual Muscle Testing Posterior 4 PT-OP-Q Treatments Start: 11/30/21 09:07 Freq: Status: Active Protocol: Document 02/02/22 13:50 [facility] (Rec: 02/02/22 14:12 [facility] [id number]) Therapeutic Exercises Supine Exercises reverse pelvic floor exercise for eccentric control Reps/Minutes stair template x 5 reps working on eccentric lowering ball squeeze with pelvic floor activation Reps/Minutes x 10 reps holding 5 sec hip roll outs Reps/Minutes 2 x 10 reps pelvic floor long holds Reps/Minutes x 10 reps Comments pt is better able to feel the relaxation Manual Therapy Treatment Manual Techniques manual assessment of pelvic floor strength and tone Comments pt demonstrates improved facilitation of the pelvic floor MMT 4/5 for all galeana Self-Care/Home Management Treatment Education Patient Education Home Exercise Program Other Education HEP reviewed pt was educated on splinting the perineum with bowel movements to assist fully emptying the bowels PT-OP-T Assessment and Plan Start: 11/30/21 09:07 Freq: Status: Active Protocol: Document 02/02/22 13:50 [facility] (Rec: 02/02/22 13:57 [facility] [id number]) Physical Therapy Assessment Goals 3 Impairment decreased endurance of the levator ani Short Term Goal (STG) Briana is able to sustain a pelvic floor contraction in supine x 10 seconds STG Duration 5 weeks Long-Term Goal (LTG) Briana is able to sustain a pelvic floor contraction in standing x 5-10 seconds LTG Duration 12 weeks 2 Impairment Decreased pelvic floor strength Long-Term Goal (LTG) Briana is able to strengthen all parts of her levator ani especially the left lateral wall for improved bladder support LTG Duration 12 weeks 1 Impairment urinary stress incontinence Junior 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 She feels ready to DC to a [facility] Physical Therapy Plan Frequency and Duration Frequency of Treatment 1x/Week Duration of treatment (weeks) 12 Plan of Care Start Date 11/30/21 Plan of Care End Date 03/20/22 Therapeutic Interventions Therapeutic Interventions Home Exercise Program, Neuromuscular Re-education, Patient/Caregiver Education, Self-Care/Home Management, Therapeutic Exercises Modalities Biofeedback Discharge Physical Therapy Discharge Reasons Goals Met Next Visit Focus/Plan Next Note Type Treatment Note Next Visit Plan REVIEW hip ER and gluteus medius strengthening with pelvic floor activation to help facilitate the left lateral wall of the levator ani. Work in standing pelvic floor and sit-stand next visit . Review HEP
== END 2022-02-06 14:33 | disposition home or self-care (01) ==
LOC: PHYS 13:45
PROVIDERS: Family Provider Family Medicine; PCP Family Medicine; Referring Provider Family Medicine; Visit Provider Family Medicine
DX: N39.3 Stress incontinence (female) (male) (principal)
CPT/HCPCS: 97110; 97161; 97535

== ENCOUNTER → 2022-07-29 09:16 | Outpatient (CLI) | payer MEDICARE, SELFPAY ==
[2022-07-29 10:41] LABS: Add Manual Diff / Slide Review NO; Basophils Absolute Auto 0 /uL (0-100); Basophils Percent Auto 0.8 % (0-2); Eosinophils Absolute Auto 200 /uL (0-450); Eosinophils Percent Auto 2.5 % (2-4); Hematocrit 36.5 % (36-46); Hemoglobin 12.5 g/dL (12.0-16.0); Lymphocytes Absolute Auto 1700 /uL (1100-4500); Lymphocytes Percent Auto 27.5 % (25-40); Mean Corpuscular HGB Conc 34.1 % (30-36); Mean Corpuscular Hemoglobin 29.4 PG (26-34); Mean Corpuscular Volume 86.2 fL (80-100); Monocytes Absolute Auto 600 /uL (0-900); Monocytes Percent Auto 10.1 % (3-14); Neutrophils Absolute Auto 3600 /uL (1500-7000); Neutrophils Percent Auto 59.1 % (50-75); Platelet Count 259 X10^3/uL (150-400); Red Blood Cell Count 4.24 X10^6/uL (4.0-5.2); Red Cell Distribution Width 13.7 % (11.6-14.8); White Blood Cell Count 6.1 X10^3/uL (4.5-11.0)
[2022-07-29 10:53] LABS: Alanine Aminotransferase 32 IU/L (<35); Albumin 4.1 g/dL (3.5-5.0); Albumin Globulin Ratio 1.4 (1.0-2.8); Alkaline Phosphatase 91 U/L (38-126); Aspartate Aminotransferase 39 IU/L (14-36); BUN Creatinine Ratio 21.1 (6-22); Bilirubin Total 0.4 mg/dL (0.2-1.3); Blood Urea Nitrogen 16 mg/dL (7-17); Calcium 8.9 mg/dL (8.4-10.2); Carbon Dioxide 30 mmol/L (22-32); Chloride 96 mmol/L (98-107); Cholesterol 264 mg/dL (140-199); Estimated Glomerular Filt Rate > 60 mL/min (>60); Glucose 77 mg/dL (80-110); HDL Cholesterol 83 mg/dL (40-60); HEMOLYSIS < 15 (0-50); LDL Cholesterol Calculated 162 mg/dL (<100); Potassium 3.9 mmol/L (3.4-5.1); Sodium 133 mmol/L (137-145); Total Protein 7.1 g/dL (6.3-8.2); Triglycerides 93 mg/dL (35-150)
[2022-07-29 11:24] LABS: TSH w/ Reflex to FT4 3.49 uIU/mL (0.47-4.68)
== END ==
PROVIDERS: Family Provider Family Medicine; PCP Family Medicine; Referring Provider Family Medicine; Visit Provider Family Medicine
DX: E78.5 Hyperlipidemia, unspecified (principal); I10 Essential (primary) hypertension; R53.83 Other fatigue
CPT/HCPCS: 36415; 80053; 80061; 84443; 85025

== ENCOUNTER → 2022-09-11 11:47 | Outpatient (CLI) | payer MEDICARE, SELFPAY ==
--- NOTE | 2022-09-11 11:49 | DI.MG.S_ITS ---
BILATERAL DIGITAL SCREENING MAMMOGRAM 3D/2D WITH CAD: 09/11/2022 CLINICAL: Baseline exam. Routine screening. Family history of breast cancer. No prior exams were available for comparison. Both breasts are almost entirely fatty (category a/<25% glandular tissue). Current study was also evaluated with a Computer Aided Detection (CAD) system. There is a focal asymmetry in the right breast at 12 o'clock middle depth. There is a focal asymmetry in the left breast at 1 o'clock middle depth. No other significant masses or calcifications are seen in either breast. IMPRESSION: INCOMPLETE: NEEDS ADDITIONAL IMAGING EVALUATION The focal asymmetry in the right breast at 12 o'clock middle depth is indeterminate. Additional views with possible ultrasound are recommended. The focal asymmetry in the left breast at 1 o'clock middle depth is indeterminate. Additional views with possible ultrasound are recommended. Based on the Tyrer Cuzick model (a risk assessment model) the patient's lifetime risk is 4.8% and her 10 year risk is 3.6%. According to the ACR, ACS, and NCCN guidelines, an annual breast MRI exam along with mammogram is recommended if the patient's lifetime risk is 20% or greater. This exam was interpreted at Station ID: [id number]. NOTE: For mammograms, a report in lay terms will be sent to the patient. Approximately 15% of breast malignancies will not be visualized mammographically. In the management of a palpable breast mass, a negative mammogram must not discourage biopsy of a clinically suspicious lesion. Electronically Signed By: Deepak joshua/:09/11/2022 12:29:43 letter sent: Additional Imaging Needed ACR BI-RADS Category 0: Incomplete [id number]
== END ==
PROVIDERS: Family Provider Family Medicine; PCP Family Medicine; Referring Provider Family Medicine; Visit Provider Family Medicine
DX: Z12.31 Encounter for screening mammogram for malignant neoplasm of breast (principal); Z80.3 Family history of malignant neoplasm of breast
CPT/HCPCS: 77063; 77067

== ENCOUNTER → 2022-09-25 10:14 | Outpatient (CLI) | payer MEDICARE, SELFPAY ==
--- NOTE | 2022-09-25 | DI.MG.S_ITS ---
BILATERAL DIGITAL DIAGNOSTIC MAMMOGRAM 3D/2D WITH ADDITIONAL VIEWS: 09/25/2022 CLINICAL: Additional evaluation requested from prior study. Comparison is made to exam dated: 09/11/2022 mammogram - [facility]. Both breasts are almost entirely fatty (category a/<25% glandular tissue). There is a focal asymmetry in the right breast at 12 o'clock middle depth. This is less prominent. There is a focal asymmetry in the left breast at 1 o'clock middle depth. This is less prominent. No other significant masses or calcifications are seen in either breast. IMPRESSION: INCOMPLETE: NEEDS ADDITIONAL IMAGING EVALUATION The focal asymmetry in the right breast at 12 o'clock middle depth is indeterminate. An ultrasound is recommended. The focal asymmetry in the left breast at 1 o'clock middle depth is indeterminate. An ultrasound is recommended. Based on the Tyrer Cuzick model (a risk assessment model) the patient's lifetime risk is 2.8% and her 10 year risk is 2.1%. According to the ACR, ACS, and NCCN guidelines, an annual breast MRI exam along with mammogram is recommended if the patient's lifetime risk is 20% or greater. This exam was interpreted at Station ID: [id number]. NOTE: For mammograms, a report in lay terms will be sent to the patient. Approximately 15% of breast malignancies will not be visualized mammographically. In the management of a palpable breast mass, a negative mammogram must not discourage biopsy of a clinically suspicious lesion. Electronically Signed By: Deepak Courtney M.D. lc/:09/25/2022 11:27:59 ACR BI-RADS Category 0: Incomplete 3340F
--- NOTE | 2022-09-25 10:15 | DI.US.S_ITS ---
ULTRASOUND OF RIGHT BREAST: 09/25/2022 CLINICAL: ABNORMAL MAMMOGRAM. Comparison is made to exams dated: 09/25/2022 ultrasound, 09/25/2022 mammogram, and 09/11/2022 mammogram - [facility]. Color flow and real-time ultrasound of the right breast were performed. De Leon scale images of the real-time examination were reviewed. No significant abnormalities were seen sonographically in the right breast. IMPRESSION: NEGATIVE There is no sonographic evidence of malignancy. There is no abnormality seen in the right breast to correspond with the mammography finding which likely represents normal fibroglandular tissue. Return to annual mammogram screening schedule is recommended. This exam was interpreted at Station ID: [id number]. Electronically Signed By: Deepak Courtney M.D. lc/:09/29/2022 10:30:00 Ultrasound BI-RADS: 1 Negative
--- NOTE | 2022-09-25 11:08 | DI.US.S_ITS ---
Patient Name: DEVIN GUIDRY date: 1950 Sex: F Attending Physician: Tre Indications: Date: 09/25/2022 12:04 At the request of: NASH KING Procedure: US breast LT limited ULTRASOUND OF LEFT BREAST: 09/25/2022 CLINICAL: ABNORMAL MAMMOGRAM. Comparison is made to exams dated: 09/25/2022 ultrasound - [facility], 09/25/2022 mammogram, and 09/11/2022 mammogram - [facility]. Color flow and real-time ultrasound of the left breast were performed. De Leon scale images of the real-time examination were reviewed. No significant abnormalities were seen sonographically in the left breast. IMPRESSION: NEGATIVE There is no sonographic evidence of malignancy. There is no abnormality seen in the left breast to correspond with the mammography finding which likely represents normal fibroglandular tissue. Return to annual mammogram screening schedule is recommended. This exam was interpreted at Station ID: [id number]. Electronically Signed By: Deepak joshua/:09/25/2022 12:04:21 Entry: aa - 09/26/2022 08:35:58 Ultrasound BI-RADS: 1 Negative
--- NOTE | 2022-09-25 11:08 | DI.US.S_ITS ---
Patient Name: DEVIN GUIDRY date: 1950 Sex: F Attending Physician: Tre Indications: Date: 09/25/2022 11:27 At the request of: NASH KING Procedure: MM diagnostic mammo BI BILATERAL DIGITAL DIAGNOSTIC MAMMOGRAM 3D/2D WITH ADDITIONAL VIEWS: 09/25/2022 CLINICAL: Additional evaluation requested from prior study. Comparison is made to exam dated: 09/11/2022 mammogram - [facility]. Both breasts are almost entirely fatty (category a/<25% glandular tissue). There is a focal asymmetry in the right breast at 12 o'clock middle depth. This is less prominent. There is a focal asymmetry in the left breast at 1 o'clock middle depth. This is less prominent. No other significant masses or calcifications are seen in either breast. IMPRESSION: INCOMPLETE: NEEDS ADDITIONAL IMAGING EVALUATION The focal asymmetry in the right breast at 12 o'clock middle depth is indeterminate. An ultrasound is recommended. The focal asymmetry in the left breast at 1 o'clock middle depth is indeterminate. An ultrasound is recommended. Based on the Tyrer Cuzick model (a risk assessment model) the patient?s lifetime risk is 2.8% and her 10 year risk is 2.1%. According to the ACR, ACS, and NCCN guidelines, an annual breast MRI exam along with mammogram is recommended if the patient?s lifetime risk is 20% or greater. This exam was interpreted at Station ID: [id number]. Continued Report - Page 2 of 2 Patient Name: DEVIN GUIDRY date: 1950 Sex: F Attending Physician: Tre Indications: Date: 09/25/2022 11:27 At the request of: NASH KING Procedure: MM diagnostic mammo BI NOTE: For mammograms, a report in lay terms will be sent to the patient. Approximately 15% of breast malignancies will not be visualized mammographically. In the management of a palpable breast mass, a negative mammogram must not discourage biopsy of a clinically suspicious lesion. Electronically Signed By: Deepak Courtney M.D. lc/:09/25/2022 11:27:59 ACR BI-RADS Category 0: Incomplete 3340F
== END ==
PROVIDERS: Family Provider Family Medicine; PCP Family Medicine; Referring Provider Family Medicine; Visit Provider Family Medicine
DX: R92.8 Other abnormal and inconclusive findings on diagnostic imaging of breast (principal); N64.89 Other specified disorders of breast
CPT/HCPCS: 76642; 77066; G0279

== ENCOUNTER → 2023-04-05 08:13 | Outpatient (CLI) | payer OTHER, SELFPAY ==
--- NOTE | 2023-04-05 08:15 | DI.RAD.S_ITS ---
PROCEDURE: XR HIP W PEL IF DONE SRIDHAR MIN 4V INDICATIONS: bilateral hip pain TECHNIQUE: AP pelvis with lateral view(s) of the right and left hip(s). COMPARISON: None. FINDINGS: Bones: No fractures or dislocations. Pelvic ring appears intact. No suspicious bony lesions. Mild symmetric osteoarthritic changes in hips and sacroiliac joints bilaterally. Soft tissues: The visualized bowel gas pattern is normal. No suspicious soft tissue calcifications. IMPRESSION: Mild osteoarthritis. Dictated by: Bernardino Benjamin M.D. on 04/05/2023 at 12:07 Approved by: Bernardino Benjamin M.D. on 04/05/2023 at 12:08
--- NOTE | 2023-04-05 08:15 | DI.RAD.S_ITS ---
Bone Density Report Name: DEVIN GUIDRY Age: 73 Sex: Female Ethnicity: White Date of : 1950 Indication: postmenopausal; screening for osteoporosis; Referring Provider: NASH KING Study: Bone densitometry was performed. Exam Date: April 05, 2023 Accession number: [id number] Bone Density: Region BMD T-score Z-score Classification AP Spine(L1-L4) 0.756 -2.6 -0.4 Osteoporosis Femoral Neck (Left) 0.526 -2.9 -0.9 Osteoporosis Total Hip (Left) 0.711 -1.9 -0.2 Osteopenia Femoral Neck (Right) 0.462 -3.5 -1.5 Osteoporosis Total Hip (Right) 0.676 -2.2 -0.5 Osteopenia Total Hip Mean 0.694 -2.1 -0.4 Osteopenia World Health Organization criteria for BMD impression classify patients as: Normal (T-score at or above -1.0), Osteopenia (T-score between -1.0 and -2.5), or Osteoporosis (T-score at or below -2.5). 10-year Fracture Risk: FRAX not reported because: Some T-score for Spine Total or Hip Total or Femoral Neck at or below -2.5 Impression: The patient has osteoporosis, based on the Right Femoral Neck T-score. Discussion: INCREASED RISK OF FRACTURE. BONE DENSITY IS UNDESIRABLY LOW AT ONE OR MORE SKELETAL SITES, CONSISTENT WITH POSTMENOPAUSAL OSTEOPOROSIS. This patient's lowest T-score meets the World Health Organization's (WHO) criteria for osteoporosis at one or more sites (T-score -2.5 or below). In untreated patients, the risk of osteoporotic fracture increases approximately two-fold for each 1.0 SD decrease in T-score. Low bone density is not the only risk factor for fracture; also consider factors such as patient's age, frailty or poor health, risk of falling, risk of injury, previous osteoporotic fracture, family history of osteoporosis, cigarette smoking, low body weight, etc. Not everyone with low bone mineral density has osteoporosis; osteomalacia and other metabolic bone disorders should also be considered. Patients who have osteoporosis should be evaluated for specific diseases and conditions (secondary causes) that may cause or contribute to bone loss. The [place] [employer]ocr[employer] (AACE) and National Osteoporosis Foundation (NOF) recommend pharmacologic intervention for all postmenopausal women whose T-score is in this range. The patient should follow a healthful lifestyle (good nutrition with adequate calcium and vitamin D, and appropriate weight-bearing exercise). Follow-Up: Consider a repeat BMD and Vertebral Fracture Assessment (VFA) exam in 2 years or sooner if medically necessary, to reassess this patient's status. Reported by: SIRIA KRISHNA M.D. on 04/05/2023 8:37:00 AM.
[2023-04-05 09:23] LABS: Add Manual Diff / Slide Review NO; Basophils Absolute Auto 0 /uL (0-100); Basophils Percent Auto 0.6 % (0-2); Eosinophils Absolute Auto 200 /uL (0-450); Eosinophils Percent Auto 2.7 % (2-4); Hematocrit 37.5 % (36-46); Hemoglobin 12.6 g/dL (12.0-16.0); Lymphocytes Absolute Auto 1400 /uL (1100-4500); Lymphocytes Percent Auto 22.8 % (25-40); Mean Corpuscular HGB Conc 33.7 % (30-36); Mean Corpuscular Hemoglobin 29.1 PG (26-34); Mean Corpuscular Volume 86.6 fL (80-100); Monocytes Absolute Auto 500 /uL (0-900); Monocytes Percent Auto 8.8 % (3-14); Neutrophils Absolute Auto 4000 /uL (1500-7000); Neutrophils Percent Auto 65.1 % (50-75); Platelet Count 245 X10^3/uL (150-400); Red Blood Cell Count 4.33 X10^6/uL (4.0-5.2); Red Cell Distribution Width 13.7 % (11.6-14.8); White Blood Cell Count 6.2 X10^3/uL (4.5-11.0)
[2023-04-05 09:30] LABS: Alanine Aminotransferase 24 IU/L (<35); Albumin 4.2 g/dL (3.5-5.0); Albumin Globulin Ratio 1.3 (1.0-2.8); Alkaline Phosphatase 78 U/L (38-126); Aspartate Aminotransferase 35 IU/L (14-36); BUN Creatinine Ratio 21.3 (6-22); Bilirubin Total 0.6 mg/dL (0.2-1.3); Blood Urea Nitrogen 16 mg/dL (7-17); Calcium 9.3 mg/dL (8.4-10.2); Carbon Dioxide 31 mmol/L (22-32); Chloride 99 mmol/L (98-107); Cholesterol 268 mg/dL (140-199); Estimated Glomerular Filt Rate > 60 mL/min (>60); Globulin 3.3 g/dL (1.7-4.1); Glucose 77 mg/dL (80-110); HDL Cholesterol 64 mg/dL (40-60); HEMOLYSIS < 15 (0-50); LDL Cholesterol Calculated 183 mg/dL (<100); Potassium 3.5 mmol/L (3.4-5.1); Sodium 136 mmol/L (137-145); Total Protein 7.5 g/dL (6.3-8.2); Triglycerides 105 mg/dL (35-150)
[2023-04-05 10:01] LABS: Ferritin 16 ng/mL (11-264)
== END ==
PROVIDERS: Family Provider Family Medicine; PCP Family Medicine; Referring Provider Family Medicine; Visit Provider Family Medicine
DX: M16.0 Bilateral primary osteoarthritis of hip (principal); Z13.820 Encounter for screening for osteoporosis; M81.0 Age-related osteoporosis without current pathological fracture; Z78.0 Asymptomatic menopausal state; E78.5 Hyperlipidemia, unspecified; I10 Essential (primary) hypertension; R53.82 Chronic fatigue, unspecified; M25.551 Pain in right hip; M25.552 Pain in left hip
CPT/HCPCS: 36415; 73522; 77080; 80053; 80061; 82728; 84443; 85025

== ENCOUNTER → 2023-05-26 08:56 | Outpatient (CLI) | payer OTHER, SELFPAY ==
[2023-05-26 12:43] LABS: Vitamin B12 977 pg/mL (239-931)
== END ==
PROVIDERS: Family Provider Family Medicine; PCP Family Medicine; Referring Provider Family Medicine; Visit Provider Family Medicine
DX: R53.83 Other fatigue (principal)
CPT/HCPCS: 36415; 82607

== ENCOUNTER → 2023-07-05 06:55 | Outpatient (CLI) | payer MEDICARE, SELFPAY ==
[2023-07-05 07:46] LABS: Hematocrit 38.8 % (36-46)
[2023-07-05 08:13] LABS: Alanine Aminotransferase 24 IU/L (<35); Albumin 4.5 g/dL (3.5-5.0); Albumin Globulin Ratio 1.6 (1.0-2.8); Alkaline Phosphatase 70 U/L (38-126); Aspartate Aminotransferase 33 IU/L (14-36); BUN Creatinine Ratio 18.5 (6-22); Bilirubin Total 0.6 mg/dL (0.2-1.3); Blood Urea Nitrogen 12 mg/dL (7-17); Calcium 9.4 mg/dL (8.4-10.2); Carbon Dioxide 33 mmol/L (22-32); Chloride 98 mmol/L (98-107); Cholesterol 171 mg/dL (140-199); Estimated Glomerular Filt Rate > 60 mL/min (>60); Globulin 2.8 g/dL (1.7-4.1); Glucose 80 mg/dL (80-110); HDL Cholesterol 69 mg/dL (40-60); HEMOLYSIS < 15 (0-50); LDL Cholesterol Calculated 84 mg/dL (<100); Potassium 3.6 mmol/L (3.4-5.1); Sodium 136 mmol/L (137-145); Total Protein 7.3 g/dL (6.3-8.2); Triglycerides 92 mg/dL (35-150)
[2023-07-05 08:44] LABS: Ferritin 15 ng/mL (11-264)
== END ==
PROVIDERS: Family Provider Family Medicine; PCP Family Medicine; Referring Provider Physician Assistant; Visit Provider Physician Assistant
DX: E78.5 Hyperlipidemia, unspecified (principal); R53.83 Other fatigue; I10 Essential (primary) hypertension
CPT/HCPCS: 36415; 80053; 80061; 82728; 85014; 85018

== ENCOUNTER → 2023-10-03 06:49 | Outpatient (CLI) | payer MEDICARE, SELFPAY ==
[2023-10-03 09:29] LABS: Vitamin B12 939 pg/mL (239-931)
== END ==
PROVIDERS: Family Provider Family Medicine; PCP Family Medicine; Referring Provider Physician Assistant; Visit Provider Physician Assistant
DX: R74.8 Abnormal levels of other serum enzymes (principal)
CPT/HCPCS: 36415; 82607

== ENCOUNTER → 2024-01-04 12:10 | Outpatient (CLI) | payer MEDICARE, SELFPAY | LOC: LAB 12:11 | PROVIDERS: Family Provider Family Medicine; PCP Family Medicine; Referring Provider Family Medicine; Visit Provider Family Medicine | DX: B37.0 Candidal stomatitis (principal); K59.00 Constipation, unspecified; R53.83 Other fatigue | CPT/HCPCS: 83993 ==

== ENCOUNTER → 2024-01-07 09:16 | Outpatient (CLI) | payer MEDICARE, SELFPAY | PROVIDERS: Family Provider Family Medicine; PCP Family Medicine; Referring Provider Family Medicine; Visit Provider Family Medicine | DX: B37.0 Candidal stomatitis (principal); K59.00 Constipation, unspecified; R53.83 Other fatigue | CPT/HCPCS: 87045 ==

== ENCOUNTER → 2024-06-24 09:18 | Outpatient (CLI) | payer OTHER, SELFPAY ==
[2024-06-24 10:04] LABS: Add Manual Diff / Slide Review NO; Basophils Absolute Auto 100 /uL (0-100); Basophils Percent Auto 1.1 % (0-2); Eosinophils Absolute Auto 200 /uL (0-450); Eosinophils Percent Auto 2.7 % (2-4); Hematocrit 37.2 % (36-46); Hemoglobin 12.6 g/dL (12.0-16.0); Lymphocytes Absolute Auto 1500 /uL (1100-4500); Lymphocytes Percent Auto 25.7 % (25-40); Mean Corpuscular Hemoglobin 30.6 PG (26-34); Mean Corpuscular Volume 89.9 fL (80-100); Monocytes Absolute Auto 500 /uL (0-900); Monocytes Percent Auto 8.6 % (3-14); Neutrophils Absolute Auto 3600 /uL (1500-7000); Neutrophils Percent Auto 61.9 % (50-75); Platelet Count 214 X10^3/uL (150-400); Red Blood Cell Count 4.14 X10^6/uL (4.0-5.2); Red Cell Distribution Width 13.3 % (11.6-14.8); White Blood Cell Count 5.9 X10^3/uL (4.5-11.0)
[2024-06-24 10:36] LABS: Alanine Aminotransferase 35 IU/L (<35); Albumin 4.5 g/dL (3.5-5.0); Albumin Globulin Ratio 1.5 (1.0-2.8); Alkaline Phosphatase 92 U/L (38-126); Aspartate Aminotransferase 46 IU/L (14-36); BUN Creatinine Ratio 24.7 (6-22); Bilirubin Total 0.6 mg/dL (0.2-1.3); Blood Urea Nitrogen 19 mg/dL (7-17); Calcium 9.5 mg/dL (8.4-10.2); Carbon Dioxide 29 mmol/L (22-32); Chloride 99 mmol/L (98-107); Cholesterol 204 mg/dL (140-199); Estimated Glomerular Filt Rate > 60 mL/min (>60); Globulin 3.1 g/dL (1.7-4.1); Glucose 87 mg/dL (80-110); HDL Cholesterol 81 mg/dL (40-60); HEMOLYSIS < 15 (0-50); LDL Cholesterol Calculated 97 mg/dL (<100); Potassium 3.7 mmol/L (3.4-5.1); Sodium 135 mmol/L (137-145); Total Protein 7.6 g/dL (6.3-8.2); Triglycerides 132 mg/dL (35-150)
[2024-06-24 11:24] LABS: Vitamin B12 799 pg/mL (239-931)
== END ==
PROVIDERS: Family Provider Family Medicine; PCP Family Medicine; Referring Provider Family Medicine; Visit Provider Family Medicine
DX: E78.5 Hyperlipidemia, unspecified (principal); R74.8 Abnormal levels of other serum enzymes; I10 Essential (primary) hypertension
CPT/HCPCS: 36415; 80053; 80061; 82607; 85025

== ENCOUNTER → 2024-08-01 09:01 | Outpatient (CLI) | payer OTHER, SELFPAY ==
[2024-08-01 10:33] LABS: C-Reactive Protein Quant < 0.5 mg/dL (<1.0)
[2024-08-01 11:36] LABS: Erythrocyte Sedimentation Rate 8 MM/HR (0-20)
== END ==
PROVIDERS: Family Provider Family Medicine; PCP Family Medicine; Referring Provider Family Medicine; Visit Provider Family Medicine
DX: E78.5 Hyperlipidemia, unspecified (principal); I10 Essential (primary) hypertension
CPT/HCPCS: 36415; 85651; 86140

== ENCOUNTER → 2024-09-27 07:58 | Outpatient (CLI) | payer OTHER, SELFPAY ==
[2024-09-27 11:59] LABS: Influenza A - CEPHEID Flu A NEGATIVE (NEGATIVE); Influenza B - CEPHEID Flu B NEGATIVE (NEGATIVE)
[2024-09-27 12:00] LABS: COVID-19 CEPHEID 4-PLEX PCR POSITIVE (Negative)
== END ==
PROVIDERS: PCP Family Medicine; Visit Provider Nurse Practitioner Family
DX: J02.9 Acute pharyngitis, unspecified (principal); R05.1 Acute cough
CPT/HCPCS: 87070; 87637

== ENCOUNTER → 2024-09-27 08:39 | Outpatient (CLI) | payer OTHER, SELFPAY ==
--- NOTE | 2024-09-27 08:40 | DI.RAD.S_ITS ---
PROCEDURE: XR CHEST 2V INDICATIONS: Cough TECHNIQUE: 2 views of the chest were acquired. COMPARISON: None. FINDINGS: Surgical changes and devices: None. Lungs and pleura: Lungs are clear. No pleural effusions or pneumothorax. Mediastinum: Mediastinal contours are normal. Heart size is normal. Bones and chest wall: No suspicious bony abnormalities. Soft tissues appear unremarkable. IMPRESSION: No acute cardiopulmonary abnormality is seen. Dictated by: Kelton Eddy M.D. on 09/28/2024 at 6:36 Approved by: Kelton Eddy M.D. on 09/28/2024 at 6:36
== END ==
PROVIDERS: PCP Family Medicine; Referring Provider Family Medicine; Visit Provider Nurse Practitioner Family
DX: J02.9 Acute pharyngitis, unspecified (principal); R05.1 Acute cough
CPT/HCPCS: 71046; 87070; 87637

== ENCOUNTER → 2025-01-26 06:54 | Outpatient (CLI) | payer OTHER, SELFPAY ==
[2025-01-26 07:58] LABS: Alanine Aminotransferase 24 IU/L (<35); Albumin 4.5 g/dL (3.5-5.0); Albumin Globulin Ratio 1.5 (1.0-2.8); Alkaline Phosphatase 92 U/L (38-126); Blood Urea Nitrogen 20 mg/dL (7-17); Calcium 9.4 mg/dL (8.4-10.2); Carbon Dioxide 30 mmol/L (22-32); Chloride 100 mmol/L (98-107); Cholesterol 254 mg/dL (140-199); Estimated Glomerular Filt Rate > 60 mL/min (>60); Globulin 3.1 g/dL (1.7-4.1); Glucose 88 mg/dL (70-99); HDL Cholesterol 85 mg/dL (40-60); HEMOLYSIS < 15 (0-50); Potassium 3.9 mmol/L (3.4-5.1); Sodium 139 mmol/L (137-145); Total Protein 7.6 g/dL (6.3-8.2); Triglycerides 111 mg/dL (35-150)
== END ==
PROVIDERS: PCP Family Medicine; Referring Provider Family Medicine; Visit Provider Family Medicine
DX: E78.5 Hyperlipidemia, unspecified (principal); I10 Essential (primary) hypertension
CPT/HCPCS: 36415; 80053; 80061

== ENCOUNTER → 2025-01-31 10:15 | Outpatient (CLI) | payer OTHER, SELFPAY | PROVIDERS: PCP Family Medicine; Referring Provider Family Medicine; Visit Provider Family Medicine | DX: Z12.11 Encounter for screening for malignant neoplasm of colon (principal) | CPT/HCPCS: 82274 ==